=== PATIENT | male | born 1960 | race Caucasian/White ===

== ENCOUNTER 2023-06-19 14:25 | Outpatient (CLI) | payer OTHER, SELFPAY ==
--- NOTE | ~2023-06-19 | XR_ITS ---
XR hand BI arthritis min 3V 06/19/2023 14:48 Indication: Hand pain Procedure: 4 views each hand Comparison: No prior studies for comparison. Findings: There are healed bilateral fifth metacarpal fractures. There is moderate polyarticular oste oarthritis of the hands and wrists which appear symmetric primarily involving the distal interphalang eal joints as well as the first metacarpophalangeal joints. No erosive changes. No focal soft tissue abnormality. Small loose bodies present along the dorsal aspect of the left second and third distal i nterphalangeal joints, likely related to degenerative change or remote trauma. There are also loose b odies along the right second and third distal interphalangeal joints of probable similar etiology. No foreign bodies. Impression: 1: Moderate bilateral polyarticular osteoarthritis. Reviewed, dictated and finalized at location B. APIST Impression: 1: Moderate bilateral polyarticular osteoarthritis.
[2023-06-19 14:40] LABS: Basophils Absolute Auto 0.05 K/mm3 (0.00-0.10); Basophils Percent Auto 0.7 % (0.0-1.0); Eosinophils Absolute Auto 0.22 K/mm3 (0.02-0.50); Eosinophils Percent Auto 2.9 % (1.0-6.0); Hematocrit 44.5 % (40.0-54.0); Hemoglobin 15.5 g/dL (14.0-18.0); Immature Granulocyte Absolute 0.02 K/mm3 (0.00-0.00); Immature Granulocyte Percent A 0.3 % (0.0-0.0); Lymphocytes Percent Auto 24.9 % (18.0-42.0); Mean Corpuscular HGB Conc 34.8 g/dL (32.0-36.0); Mean Corpuscular Hemoglobin 32.6 pg (27.0-31.0); Mean Corpuscular Volume 93.5 fL (78.0-102.0); Mean Platelet Volume 10.2 fl (8.7-11.0); Monocytes Absolute Auto 0.54 K/mm3 (0.10-0.90); Monocytes Percent Auto 7.1 % (2.0-11.0); Neutrophils Absolute Auto 4.9 K/mm3 (1.7-7.2); Neutrophils Percent Auto 64.1 % (50.0-70.0); Platelet Count Result 215 K/mm3 (150-420); Red Blood Count 4.76 M/mm3 (4.70-6.10); Red Cell Distribution Width 12.7 % (11.6-14.4); White Blood Count 7.6 K/mm3 (4.8-10.8)
[2023-06-19 15:08] LABS: Rheumatoid Factor Screen Negative (Negative)
[2023-06-19 15:15] LABS: Alanine Aminotransferase 19 U/L (16-63); Albumin Level 3.5 g/dL (3.4-5.0); Alkaline Phosphatase 90 U/L (46-116); Anion Gap 6 mmol/L (8-16); Aspartate Amino Transferase 16 U/L (15-37); Bilirubin,Total 0.4 mg/dL (0.00-1.00); Blood Urea Nitrogen 14 mg/dL (7-18); CRP < 0.5 mg/dL (0.0-0.9); Calcium 8.9 mg/dL (8.5-10.1); Carbon Dioxide 33 mmol/L (21-32); Chloride 103 mmol/L (98-108); Cholesterol 133 mg/dL (0-200); Estimated Glomerular Filt Rate > 60; Glucose 69 mg/dL (70-99); HDL Direct 37 mg/dL (40-60); LDL Cholesterol Calculated 74 mg/dL (<130); Osmolality Calculated 292 mOsm/kg (285-295); Sodium 142 mmol/L (136-145); Total Protein 7.8 g/dL (6.4-8.2); Triglycerides 108 mg/dL (0-150)
[2023-06-19 15:24] LABS: Thyroid Stimulating Hormone Reflex 1.56 u/IU/mL (0.36-3.74)
[2023-06-21 19:15] LABS: ANA Cascade Screen Negative (Negative)
== END 2023-06-19 14:26 | disposition home or self-care (01) ==
LOC: CHSLAB 14:29
PROVIDERS: PCP Family Medicine; Visit Provider Family Medicine
DX: Z00.00 Encounter for general adult medical examination without abnormal findings (principal); E11.9 Type 2 diabetes mellitus without complications; M79.642 Pain in left hand; M79.641 Pain in right hand; M19.042 Primary osteoarthritis, left hand; M19.041 Primary osteoarthritis, right hand
CPT/HCPCS: 36415; 73130; 80053; 80061; 83516; 84443; 85025; 86038; 86140; 86225; 86235; 86430

== ENCOUNTER 2023-07-19 10:58 | Outpatient (CLI) | payer OTHER, SELFPAY ==
--- NOTE | ~2023-07-19 | XR_ITS ---
Left Knee Technique: AP, lateral, and sunrise views were obtained. Clinical History: Pain Findings: No fracture or dislocation is seen. Osseous alignment is anatomic. Joint spaces are preserv ed without degenerative or erosive change. Soft tissues are unremarkable. No joint effusion is seen. Impression: Unremarkable left knee radiographs. Reviewed, dictated and finalized at location . ERCIAL PLUMBER Impression: Unremarkable left knee radiographs.
--- NOTE | ~2023-07-19 | XR_ITS ---
Right Knee Technique: AP, lateral, and sunrise views were obtained. Clinical History: Pain Findings: No fracture or dislocation is seen. Osseous alignment is anatomic. Minimal patellar spurrin g present. Soft tissues are unremarkable. No joint effusion is seen. Impression: Minimal patellar spurring. Reviewed, dictated and finalized at [facility], [place]. 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
== END 2023-07-19 10:59 | disposition home or self-care (01) ==
LOC: CHSIMG 11:00
PROVIDERS: PCP Family Medicine; Visit Provider Family Medicine
DX: M25.562 Pain in left knee (principal); M25.561 Pain in right knee; M76.51 Patellar tendinitis, right knee
CPT/HCPCS: 73562

== ENCOUNTER 2023-10-25 08:55 | Inpatient (IN) | payer OTHER, SELFPAY ==
[2023-10-25] VITALS (33 sets, daily range): BP systolic 123–194; BP diastolic 69–98; PULSE 79–121; RESP 18–32; TEMP 35.9–39.1; O2SAT 96–100; BMI 29.5
--- NOTE | ~2023-10-25 | CT_ITS ---
EXAMINATION: CTA chest PE protocol DATE: 10/25/2023 10:47 INDICATION: Cough. Body aches. TECHNIQUE: Computed tomography angiography (CTA) of the chest was performed with 100 mL Omnipaque-350 intravenous contrast timed to evaluate the pulmonary arteries. Coronal maximum intensity projection 3D-reconstructions were created by the technologist. Automated exposure control and iterative reconst ruction technique were employed. The dose-length product was 527.30 mGy-cm. COMPARISON: Chest single view 10/25/2023 FINDINGS: There is moderate emphysema. Calcified right lung nodules and calcified right hilar lymph n odes are consistent with old granulomatous disease. There is mild atelectasis bilaterally. There are a few nodules in the lungs measuring up to 5 mm, likely benign. No pleural effusion. The heart size i s normal. No pericardial effusion. There are coronary artery calcifications. There is no pulmonary em bolus. There is mild thoracic spondylosis. There is levoscoliosis of upper thoracic spine. IMPRESSION: 1. No pulmonary embolus. 2. Moderate emphysema. Reviewed, dictated and finalized at location A.
--- NOTE | ~2023-10-25 | XR_ITS ---
EXAMINATION: XR chest 1V portable DATE: 10/25/2023 09:23 INDICATION: Dyspnea. Weakness. TECHNIQUE: A single frontal view of the chest was obtained. COMPARISON: None. FINDINGS: Calcified right lung nodules are consistent with old granulomatous disease. There is no pne umonia, pleural effusion, or pneumothorax. The heart size is normal. IMPRESSION: 1. No acute cardiopulmonary disease. Reviewed, dictated and finalized at location A.
--- NOTE | 2023-10-25 09:13 | ECG_ITS ---
Measurements Intervals [place] Rate: 92 P: 55 WV: 170 QRS: -1 QRSD: 88 T: 74 QT: 337 QTc: 417 Interpretive Statements SINUS RHYTHM ATRIAL PREMATURE COMPLEX BORDERLINE R WAVE PROGRESSION, ANTERIOR LEADS BORDERLINE ECG NO PREVIOUS ECG AVAILABLE FOR COMPARISON Electronically Signed On 10-25-2023 9:37:24 CDT by Adam Gallo D.O.
[2023-10-25] MEDS: SODIUM CHLORIDE 0.9% IV 1,000 ML 999 ML IV CONT (09:31)
[2023-10-25] MEDS: IPRATROPIUM 0.5 MG/ALBUTEROL SULFATE 2.5 MG AMPUL.NEB 3 ML INHALATION (09:33)
[2023-10-25 09:37] LABS: Basophils Absolute Auto 0.03 K/mm3 (0.00-0.10); Basophils Percent Auto 0.3 % (0.0-1.0); Hematocrit 40.3 % (40.0-54.0); Hemoglobin 14.2 g/dL (14.0-18.0); Immature Granulocyte Absolute 0.07 K/mm3 (0.00-0.00); Immature Granulocyte Percent A 0.7 % (0.0-0.0); Lymphocytes Absolute Auto 0.49 K/mm3 (1.10-4.50); Lymphocytes Percent Auto 5.1 % (18.0-42.0); Mean Corpuscular HGB Conc 35.2 g/dL (32-36); Mean Corpuscular Hemoglobin 31.4 pg (27.0-31.0); Mean Corpuscular Volume 89.2 fL (78.0-102.0); Mean Platelet Volume 10.2 fl (8.7-11.0); Monocytes Absolute Auto 0.48 K/mm3 (0.10-0.90); Neutrophils Percent Auto 88.9 % (50.0-70.0); Platelet Count Result 141 K/mm3 (150-420); Red Blood Count 4.52 M/mm3 (4.70-6.10); Red Cell Distribution Width 12.7 % (11.6-14.4); White Blood Count 9.6 K/mm3 (4.8-10.8)
[2023-10-25 09:40] LABS: Base Excess ABG -2.3 mmol/L (0-2); HCO3 ABG 19.4 mmol/L (23-29); Oxygen Content ABG 18.8 %vol (16.0-22.0); Oxygen Saturation ABG 94.6 % (95-97); Oxyhemoglobin 92.4 % (94-100); PCO2 ABG 26.4 mmHg (35-45); Total Hemoglobin 14.5 g/dL (12.0-18.0); pH ABG 7.49 (7.35-7.45)
[2023-10-25 09:43] LABS: Device ROOM AIR; Modified Allen's Test Pass; Site Drawn RIGHT RADIAL
[2023-10-25 09:52] LABS: INR 1.1; Partial Thromboplastin Time 29.3 Sec (23.9-30.70); Prothrombin Time 11.9 Seconds (9.50-12.1)
[2023-10-25 10:00] LABS: Lactic Acid Reflex 1.4 mmol/L (0.4-2.0)
[2023-10-25 10:01] LABS: Alanine Aminotransferase 34 U/L (16-63); Albumin Level 3.3 g/dL (3.4-5.0); Alkaline Phosphatase 93 U/L (46-116); Anion Gap 12 mmol/L (4-12); Aspartate Amino Transferase 52 U/L (15-37); Bilirubin,Total 1.1 mg/dL (0.00-1.00); Blood Urea Nitrogen 15 mg/dL (7-18); Calcium 8.5 mg/dL (8.5-10.1); Carbon Dioxide 26 mmol/L (21-32); Chloride 100 mmol/L (98-108); Estimated CRCL calculation 42 ml/min; Estimated Glomerular Filt Rate 46; Glucose 130 mg/dL (70-99); Magnesium 1.6 mg/dL (1.8-2.4); NT Pro B Type Natriuretic Pept 940 pg/mL (0-125); Osmolality Calculated 288 mOsm/kg (285-295); Potassium 3.4 mmol/L (3.5-5.1); Sodium 138 mmol/L (136-145); Total Protein 7.7 g/dL (6.4-8.2); Troponin I 13.1 ng/L (0.00-60.4)
[2023-10-25 10:03] LABS: D Dimer 2.22 mg/L (0.19-0.50)
--- NOTE | 2023-10-25 11:22 | ED.SOB ---
HPI - SOB/Dyspnea General Chief Complaint: Shortness of Breath/Dyspnea Stated Complaint: SOB, body aches Time Seen by Provider: 10/25/23 09:12 Source: patient and family Mode of arrival: wheelchair Limitations: no limitations History of Present Illness HPI Narrative: this is a 63-year-old male who presents from his primary care doctor's office with shortness breath for the last 5 days diaphoresis and body aches COVID influenza and RSV by his primary care physician Gurvinder were negative. Patient states that he works in a environment with possibly exposure to mold. Patient is a long-time smoker. currently does not take any medication. patient apparently has been helping a friend remodel a house and appears to have mold in the remodeling house. Denies any chest pain there is shortness of breath with some no nausea vomiting no abdominal pain no diarrhea constipation no fever chills. MD elicited complaint: shortness of breath Onset (ago): day(s) Related Data Home Medications Medication Instructions Recorded Confirmed No Home Medications 10/25/23 10/25/23 Allergies Allergy/AdvReac Type Severity Reaction Status Date / Time No Known Allergies Allergy Verified 10/25/23 09:10 Review of Systems Review of Systems: All systems reviewed & are unremarkable except as noted in HPI and below PMFSH Past Medical History Medical History (Updated 10/25/23 @ 11:29 by Sunil Chinchilla MD) Anxiety and depression Surgical History Surgical History (System 10/25/23 @ 08:28 by Chey Sarmiento) H/O skin graft Family History Family History (System 10/25/23 @ 08:28 by Chey Sarmiento) Father Lung cancer Mother Diabetes mellitus Heart disease Carcinoma of colon Cervical cancer Social History Social History (System 10/25/23 @ 08:28 by Chey Sarmiento) Smoking packs per day: 1.5 Smoking cigarettes per day: 30.0 Years smoked: 8 Smoking pack-years: 12.00 Smoking status: Current every day smoker Tobacco type: cigarettes Alcohol intake: never Substance use: never Living arrangements: alone Spiritual care concerns: No Exam Const: General: healthy appearing, no acute distress and alert Nutritional Appearance: well nourished Orientation/consciousness: patient oriented x3 Limitations: no limitations HENMT: Head: normal to inspection Neck: Neck: normal visual inspection Chest: Chest palpation & inspection: normal inspection of the chest Resp: Effort & Inspection: normal respiratory effort Auscultation: rhonchi Cardio: Rate: regular rate Rhythm: regular rhythm GI: GI Palp: Yes Soft to palpation Auscultation: normal bowel sounds Urinary Catheter: Urinary Catheter: patent and draining Skin: General skin exam: normal color Rashes: no rashes Neuro: General: patient oriented x3 Cranial nerves: Yes Nystagmus not present Extrem: General: normal to inspection Psych: Mental Status: mental status grossly normal Affect: Anxious affect present Course Course Emergency Course: Patient received breathing treatment along with some IV steroids, did receive dose of ceftriaxone and azithromycin. Patient is a long-time smoker with some currently not on any medication. Had a chest x-ray which showed no acute abnormalities, he had an elevated D-dimer and CTA performed was negative for pulmonary embolism. Labs showed a white count of 9.6 with potassium 3.4 creatinine of 1.55 BNP of 948. Troponins were negative EKG was normal sinus rhythm. ABGs shows 7.49 with a pCO2 of 26.4 and a bicarb of 18. Vital Signs Vital signs: Vital Signs Temperature 36.5 C 10/25/23 08:55 Pulse Rate 93 10/25/23 08:55 Respiratory Rate 30 H 10/25/23 08:55 Blood Pressure 136/79 10/25/23 08:55 Pulse Oximetry 100 10/25/23 08:55 Oxygen Delivery Room Air 10/25/23 08:55 Temperature 36.5 C 10/25/23 08:55 Pulse Rate 118 H 10/25/23 10:00 Respiratory Rate 27 H 10/25/23 09:57 Blood Pressure 13
[2023-10-25] MEDS: methylPREDNISolone SOD SUCC 125 MG VIAL IV PUSH (11:29)
[2023-10-25] MEDS: AZITHROMYCIN 500 MG/NS 250 ML 500 MG/250 ML BAG 250 MG IVPB (12:00)
[2023-10-25 12:05] LABS: Appearance Urine Clear (Clear); Bilirubin Urine Negative (Negative); Blood Urine Negative (Negative); Color Urine Yellow (Yellow); Glucose Urine UA Negative (Negative); Ketones Urine Negative (Negative); Leukocyte Esterase Ur Negative LEU/UL (Negative); Nitrate Urine Negative (Negative); Protein Urine Trace (Negative); Specific Grav Ur <= 1.005 (1.010-1.020)
[2023-10-25 12:09] LABS: Amphetamine Screen Urine Positive (Negative); Barbiturate Screen Urine Negative (Negative); Benzodiazepines Screen Urine Negative (Negative); Cannabinoid Screen Urine Negative (Negative); Cocaine Screen Urine Negative (Negative); Methadone Screen Urine Negative (Negative); Opiate Screen Urine Negative (Negative); Phencyclidine Screen Urine Negative (Negative)
[2023-10-25 12:20] LABS: Add Urine Microscopic? YES; Bacteria Urine None seen /hpf; RBC Urine None seen /hpf (0-2); WBC Urine None seen /hpf (0-3)
--- NOTE | 2023-10-25 12:20 | ADMGEN ---
This patient, Shamar Patel, was admitted to 2nd Floor Room 210-2. Patient/family oriented to hospital policies and general routines including ID bracelet, bed and alarms, visiting hours, pain management, procedures, bathroom and other care routines, personal items, smoking policy, room service/diet, and visiting hours. Information on how to activate the Rapid Response Team has been discussed. Patient/Family are encouraged to report perceived risks to care and to ask questions if they do not understand what they are told or what they should do.
[2023-10-25] MEDS: ACETAMINOPHEN 325 MG TABLET 650 MG PO (13:22)
[2023-10-25] MEDS: BENZONATATE 100 MG CAPSULE 200 MG PO ×2 (13:22→17:48)
[2023-10-25 17:42] LABS: Glucose Point of Care 181 mg/dl (65-105)
[2023-10-25] MEDS: methylPREDNISolone SOD SUCC 40 MG VIAL IV PUSH (17:49)
[2023-10-26] VITALS: BP 125/84; PULSE 81; RESP 21; TEMP 36.1; O2SAT 97
[2023-10-26 06:05] LABS: Basophils Absolute Auto 0.02 K/mm3 (0.00-0.10); Basophils Percent Auto 0.2 % (0.0-1.0); Hematocrit 40.6 % (40.0-54.0); Hemoglobin 14.3 g/dL (14.0-18.0); Immature Granulocyte Absolute 0.05 K/mm3 (0.00-0.00); Immature Granulocyte Percent A 0.4 % (0.0-0.0); Lymphocytes Absolute Auto 0.81 K/mm3 (1.10-4.50); Mean Corpuscular HGB Conc 35.2 g/dL (32-36); Mean Corpuscular Hemoglobin 31.2 pg (27.0-31.0); Mean Corpuscular Volume 88.6 fL (78.0-102.0); Mean Platelet Volume 10.2 fl (8.7-11.0); Monocytes Percent Auto 7.8 % (2.0-11.0); Neutrophils Absolute Auto 9.73 K/mm3 (1.70-7.20); Neutrophils Percent Auto 84.6 % (50.0-70.0); Platelet Count Result 158 K/mm3 (150-420); Red Blood Count 4.58 M/mm3 (4.70-6.10); Red Cell Distribution Width 12.8 % (11.6-14.4); White Blood Count 11.5 K/mm3 (4.8-10.8)
[2023-10-26 07:15] LABS: Phosphorus 1.9 mg/dL (2.6-4.7); Thyroid Stimulating Hormone 1.07 uIU/mL (0.36-3.74)
[2023-10-26 07:27] LABS: Hemoglobin A1C 5.4 % (<5.7)
[2023-10-26 07:45] VITALS: BP 145/84; PULSE 82; RESP 18; TEMP 36.3; O2SAT 97
[2023-10-26 08:18] LABS: Alanine Aminotransferase 49 U/L (16-63); Albumin Level 2.9 g/dL (3.4-5.0); Alkaline Phosphatase 87 U/L (46-116); Anion Gap 12 mmol/L (4-12); Aspartate Amino Transferase 47 U/L (15-37); Bilirubin,Total 0.5 mg/dL (0.00-1.00); Blood Urea Nitrogen 19 mg/dL (7-18); Carbon Dioxide 24 mmol/L (21-32); Chloride 104 mmol/L (98-108); Estimated CRCL calculation 66 ml/min; Estimated Glomerular Filt Rate > 60; Glucose 170 mg/dL (70-99); Osmolality Calculated 296 mOsm/kg (285-295); Potassium 3.5 mmol/L (3.5-5.1); Sodium 140 mmol/L (136-145); Total Protein 7.5 g/dL (6.4-8.2)
[2023-10-26 08:30] VITALS: O2SAT 97
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
[2023-10-26] MEDS: AZITHROMYCIN 250 MG TABLET 500 MG PO (09:58)
[2023-10-26] MEDS: POTASSIUM/PHOSPHORUS/SODIUM 1.5 GM PACKET 1 PACKET PO ×2 (09:58→16:54)
[2023-10-26] MEDS: methylPREDNISolone SOD SUCC 40 MG VIAL IV PUSH (09:58)
[2023-10-26] MEDS: amLODIPine BESYLATE 5 MG TABLET PO (09:58)
[2023-10-26] MEDS: BENZONATATE 100 MG CAPSULE 200 MG PO ×3 (09:58→16:51)
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
[2023-10-26] MEDS: VANCOMYCIN 1,250 MG/NS 250 ML 1,250 MG/250 ML BAG 166.67 MG IVPB (12:36)
[2023-10-26] MEDS: NICOTINE (*PBKC) 21 MG PATCH 1 PATCH TRANSDERM (12:36)
--- NOTE | 2023-10-26 12:54 | PC.NURSE ---
Patient made inpatient at 1225
[2023-10-26] MEDS: VANCOMYCIN 1,000 MG/NS 250 ML 1,000 MG/250 ML BAG 250 MG IVPB (14:25)
[2023-10-26 16:40] VITALS: BP 135/77; PULSE 89; RESP 16; TEMP 36.6; O2SAT 98
[2023-10-26] MEDS: MIRTAZAPINE 7.5 MG TABLET PO (20:53)
[2023-10-27] VITALS: BP 147/74; PULSE 74; RESP 16; TEMP 36.5; O2SAT 97
[2023-10-27] MEDS: VANCOMYCIN 1,250 MG/NS 250 ML 1,250 MG/250 ML BAG 166.67 MG IVPB (06:41)
[2023-10-27 07:37] LABS: Hemoglobin 12.6 g/dL (14.0-18.0); Mean Corpuscular Volume 88.7 fL (78.0-102.0); Mean Platelet Volume 10.5 fl (8.7-11.0); Platelet Count Result 187 K/mm3 (150-420); Red Blood Count 4.06 M/mm3 (4.70-6.10); Red Cell Distribution Width 13.1 % (11.6-14.4); White Blood Count 11.8 K/mm3 (4.8-10.8)
--- NOTE | 2023-10-27 07:51 | PM.IMPN ---
Progress Note: A&P Assessment and Plan (1) Bacteremia: Code(s): R78.81 - Bacteremia Status: Acute Assessment and Plan: IV antibiotic IV vancomycin and Azithromycin monitor vitals (2) Hypertension: Code(s): I10 - Essential (primary) hypertension Status: Acute Assessment and Plan: stable continue home medication monitor vitals (3) COPD with acute exacerbation: Code(s): J44.1 - Chronic obstructive pulmonary disease with (acute) exacerbation Status: Acute Assessment and Plan: IV antibiotic breathing treatment as needed oxygen as needed (4) Hypokalemia: Code(s): E87.6 - Hypokalemia Status: Acute Assessment and Plan: Oral potassium 40 meq bid monitor labs in the am Plan Lovenox Protonix Subjective Date/time seen: 10/27/23 07:51 Interval history: Patient is in the bed resting his Blood cultures has come back positive gram positive cocci in cluster we will treat with IV antibioitic at least one more day. Patient WBC 11.8 , K+3.1 we will replenish today with oral potassium 40 meq twice today, he is in the bed resting and denies any pain stating that he feels better today. Patient T max was 98 in the past 24 hours and his labs are trending better Exam Const: General: healthy appearing, no acute distress, alert and well nourished Neck: Neck: normal visual inspection Resp: Effort & Inspection: normal respiratory effort Auscultation: rhonchi Cardio: Rate: regular rate Rhythm: regular rhythm Skin: General skin exam: normal color Rashes: no rashes Neuro: General: patient oriented x3 Psych: Mental Status: mental status grossly normal Objective Data Vital Signs Vital Signs: Vital Signs - 24 hr 10/26/23 08:30 10/26/23 16:40 10/27/23 00:00 Temperature 97.8 F 97.7 F Pulse Rate 89 74 Respiratory Rate 16 16 Blood Pressure 135/77 147/74 H Pulse Oximetry 97 98 97 Oxygen Delivery Room Air Room Air Room Air Intake/Output Intake/Output: Intake & Output 10/24/23 10/25/23 10/26/23 10/27/23 23:59 23:59 23:59 23:59 Intake Total 2100 2200 300 Output Total 600 1325 0 Balance 1500 875 300 Meds/Results Medications: Active Medications Generic Name Dose Route Start Last Admin Trade Name Freq PRN Reason Stop Dose Admin Acetaminophen 650 mg 10/25/23 12:39 10/25/23 13:22 Acetaminophen 325 Mg Tablet PO 650 mg Q4H PRN Administration Mild Pain (1-3) or Fever Albuterol/Ipratropium 3 ml 10/25/23 12:44 Ipratropium 0.5 Mg/Albuterol Sulfate 2.5 Mg Ampul.Neb 3 Ml INHALATION Q6HRT PRN wheezing/SOB Amlodipine Besylate 5 mg 10/26/23 09:00 10/26/23 09:58 Amlodipine Besylate 5 Mg Tablet PO 5 mg QAM TREASURE Administration Azithromycin 500 mg 10/26/23 09:00 10/26/23 09:58 Azithromycin 250 Mg Tablet PO 10/29/23 09:00 500 mg DAILY TREASURE Administration Benzonatate 200 mg 10/25/23 13:00 10/26/23 16:51 Benzonatate 100 Mg Capsule PO 200 mg TID TREASURE Administration Enoxaparin Sodium 40 mg 10/26/23 09:00 10/26/23 09:58 Enoxaparin 40 Mg/0.4 Ml Syringe SUB-Q Not Given DAILY TREASURE Guaifenesin/Dextromethorphan 5 ml 10/25/23 12:44 Guaifenesin/Dextromethorphan 5 Ml Udc PO Q4H PRN Cough Vancomycin HCl 1,250 mg in 250 mls @ 166.667 mls/hr 10/27/23 07:00 10/27/23 06:41 Vancomycin 1,250 Mg/Ns 250 Ml IVPB 166.67 mls/hr Q18H TREASURE Administration Methylprednisolone Sodium Succinate 40 mg 10/27/23 09:00 Methylprednisolone Sod Succ 40 Mg Vial IV PUSH DAILY TREASURE Mirtazapine 7.5 mg 10/26/23 20:35 10/26/23 20:53 Mirtazapine 7.5 Mg Tablet PO 7.5 mg HS PRN Administration Sleep Nicotine 1 patch 10/26/23 09:00 10/26/23 12:36 Nicotine (*Pbkc) 21 Mg Patch TRANSDERM 1 patch DAILY TREASURE Administration Ondansetron HCl 4 mg 10/25/23 12:39 Ondansetron Inj 4 Mg/2 Ml Vial IV PUSH Q6H PRN Nausea And Vomiting
[2023-10-27 08:00] VITALS: BP 136/84; PULSE 76; RESP 18; TEMP 36.6; O2SAT 98
[2023-10-27 08:11] LABS: Anion Gap 10 mmol/L (4-12); Blood Urea Nitrogen 22 mg/dL (7-18); Calcium 8.4 mg/dL (8.5-10.1); Carbon Dioxide 26 mmol/L (21-32); Chloride 107 mmol/L (98-108); Estimated CRCL calculation 69 ml/min; Estimated Glomerular Filt Rate > 60; Glucose 107 mg/dL (70-99); NT Pro B Type Natriuretic Pept 611 pg/mL (0-125); Osmolality Calculated 299 mOsm/kg (285-295); Potassium 3.1 mmol/L (3.5-5.1); Sodium 143 mmol/L (136-145)
--- NOTE | 2023-10-27 08:41 | PC.NURSE ---
Lavell Bruce PARENT TRAINER notified of positive blood culture report of MRSA in both vials drawn on 10/24
[2023-10-27] MEDS: BENZONATATE 100 MG CAPSULE 200 MG PO ×3 (10:09→16:43)
[2023-10-27] MEDS: AZITHROMYCIN 250 MG TABLET 500 MG PO (10:09)
[2023-10-27] MEDS: NICOTINE (*PBKC) 21 MG PATCH 1 PATCH TRANSDERM (10:09)
[2023-10-27] MEDS: methylPREDNISolone SOD SUCC 40 MG VIAL IV PUSH (10:10)
[2023-10-27] MEDS: ENOXAPARIN 40 MG/0.4 ML SYRINGE SUB-Q (10:10)
[2023-10-27] MEDS: amLODIPine BESYLATE 5 MG TABLET PO (10:10)
[2023-10-27 16:00] VITALS: BP 150/84; PULSE 84; RESP 18; TEMP 36.5; O2SAT 98
[2023-10-27 21:05] LABS: Glucose Point of Care 206 mg/dl (65-105)
[2023-10-28] VITALS: BP 147/84; PULSE 73; RESP 18; TEMP 36.3; O2SAT 97
[2023-10-28 01:54] LABS: Vancomycin Trough 4.8 ug/mL (10.0-15.0)
[2023-10-28] MEDS: VANCOMYCIN 1,500 MG/NS 500 ML 1,500 MG/500 ML BAG 250 MG IVPB (02:21)
--- NOTE | 2023-10-28 02:55 | PC.NURSE ---
vancomycin infusion infusing without difficulty. no sign of infiltration to site..
[2023-10-28 06:02] LABS: Hematocrit 36.5 % (40.0-54.0); Hemoglobin 12.4 g/dL (14.0-18.0); Mean Corpuscular Hemoglobin 30.5 pg (27.0-31.0); Mean Corpuscular Volume 89.9 fL (78.0-102.0); Mean Platelet Volume 10.4 fl (8.7-11.0); Platelet Count Result 220 K/mm3 (150-420); Red Blood Count 4.06 M/mm3 (4.70-6.10); White Blood Count 9.9 K/mm3 (4.8-10.8)
[2023-10-28 06:16] LABS: Anion Gap 11 mmol/L (4-12); Blood Urea Nitrogen 18 mg/dL (7-18); Calcium 8.1 mg/dL (8.5-10.1); Carbon Dioxide 26 mmol/L (21-32); Chloride 108 mmol/L (98-108); Estimated CRCL calculation 73 ml/min; Estimated Glomerular Filt Rate > 60; Glucose 96 mg/dL (70-99); Osmolality Calculated 301 mOsm/kg (285-295); Potassium 3.1 mmol/L (3.5-5.1); Sodium 145 mmol/L (136-145)
--- NOTE | 2023-10-28 07:45 | PC.NURSE ---
PT REQUESTING TO BE DISCHARGED TODAY. DISCUSSED CONDITION/DIAGNOSIS. WILL INFORM HOSPITALIST OF PT REQUEST.
[2023-10-28 08:00] VITALS: BP 156/83; PULSE 77; RESP 18; TEMP 36.2; O2SAT 97
[2023-10-28] MEDS: BENZONATATE 100 MG CAPSULE 200 MG PO (08:41)
[2023-10-28] MEDS: AZITHROMYCIN 250 MG TABLET 500 MG PO (08:41)
[2023-10-28] MEDS: amLODIPine BESYLATE 5 MG TABLET PO (08:41)
[2023-10-28] MEDS: methylPREDNISolone SOD SUCC 40 MG VIAL IV PUSH (08:42)
[2023-10-28] MEDS: NICOTINE (*PBKC) 21 MG PATCH 1 PATCH TRANSDERM (08:42)
--- NOTE | 2023-10-28 09:02 | PM.DS ---
DS: Admitting Diagnosis Discharge Date 10/28/2023 Admitting Diagnosis Bacteremia DS: Discharge Diagnosis Discharge Diagnosis Plan Bacteremia , Patient is in need of a 6 week of IV antibiotics he had just been back from leaving against medical advise and his primary care provider had called him and informed him to come in to stay for IV antibiotic. I had seen patient earlier in the morning and he decided that he was not going to say. I did discuss with patient previously about the need for [facility] antibiotics and explained to him that once he has an non positive blood culture he would need 6 weeks of IV antibiotics he had agreed but apparently he has decided that he wanted to leave. It would be in the patient best interest to be seen by infectious disease and his primary care provider will be notified of his ama status again and he would be best served at a hospital with infectious disease as they may be able to get him out of the hosptial sooner. DS: Summary Hospital Course Reason for hospitalization: Bacteremia, fever Hospital Course: Patient is leaving against medical advice order oral Doxy patient needs to follow up with pCP and will possible need a echo positive mrsa and gram positive cocci with jennifer. Bacteremia , Patient is in need of a 6 week of IV antibiotics he had just been back from leaving against medical advise and his primary care provider had called him and informed him to come in to stay for IV antibiotic. I had seen patient earlier in the morning and he decided that he was not going to say. I did discuss with patient previously about the need for predatory animal exterminator antibiotics and explained to him that once he has an non positive blood culture he would need 6 weeks of IV antibiotics he had agreed but apparently he has decided that he wanted to leave. It would be in the patient best interest to be seen by infectious disease and his primary care provider will be notified of his ama status again and he would be best served at a hospital with infectious disease as they may be able to get him out of the hosptial sooner. Time Spent with Patient Time attestation: Total time spent providing and/or coordinating discharge services: Exam Const: General: healthy appearing, no acute distress, alert and well nourished Nutritional Appearance: well nourished Orientation/consciousness: patient oriented x3 Resp: Effort & Inspection: normal respiratory effort Auscultation: rhonchi Cardio: Rate: regular rate Rhythm: regular rhythm Skin: General skin exam: normal color Rashes: no rashes Neuro: General: patient oriented x3 Cranial nerves: Yes Nystagmus not present Psych: Mental Status: mental status grossly normal DS: Data Data Completed and Pending Labs on day of discharge: Labs from last 24 hours 10/28/23 10/28/23 10/27/23 05:25 01:18 20:59 WBC 9.9 RBC 4.06 L Hgb 12.4 L Hct 36.5 L MCV 89.9 MCH 30.5 MCHC 34.0 RDW 13.0 Plt Count 220 MPV 10.4 Sodium 145 Potassium 3.1 L Chloride 108 Carbon Dioxide 26 Anion Gap 11 BUN 18 Creatinine 0.87 Estim Creat Clear Calc 73 Estimated GFR > 60 Glucose 96 POC Capillary Glucose 206 H Calculated Osmolality 301 H Calcium 8.1 L Vancomycin Trough 4.8 L Preliminary micro results at discharge 10/26/23 10:59 Blood Culture - Preliminary Blood Gram positive cocci cluster is 10/26/23 10:59 Blood Culture - Preliminary Blood Gram positive cocci cluster is Discharge Plan Discharge Attending physician on discharge: Andrea Horowitz Consulting providers: Rebecca Schroeder; Lavell Bruce; Adam Gallo; Lonnie Dias V. Discharging Clinician: Lavell Bruce Anticipated Discharge Date/Time: 10/26/23 09:02 Patient Disposition: Left Against Medical Advice Activity: as tolerated Diet: as tolerated Discharge Instructions: Finish all of your antibiotics as prescribed I order
[2023-10-30 07:16] LABS: Procalcitonin 0.4 ng/mL
--- NOTE | 2023-10-30 07:56 | PC.NURSE ---
Patient returned as an observation patient per Dr Shah request before follow up call was completed 10/29/2023
== END 2023-10-28 10:15 | disposition left against medical advice (07) | DRG 140 ==
LOC: CHSED 11:31 → CHS2ND 12:00
PROVIDERS: Nurse Practitioner Acute Care; Nurse Practitioner Family; Admitting Provider Internal Medicine; Emergency Provider Emergency Medicine; PCP Family Medicine; Visit Provider Internal Medicine
DX: J44.1 Chronic obstructive pulmonary disease with (acute) exacerbation (principal); R78.81 Bacteremia; A49.02 Methicillin resistant Staphylococcus aureus infection, unspecified site; I10 Essential (primary) hypertension; E87.6 Hypokalemia; F41.9 Anxiety disorder, unspecified; F32.A Depression, unspecified; F17.210 Nicotine dependence, cigarettes, uncomplicated
CPT/HCPCS: 36415; 36600; 71045; 71275; 80048; 80053; 80202; 80307; 81001; 82805; 82948; 83036; 83605; 83735; 83880; 84100; 84145; 84443; 84484; 85025; 85027; 85380; 85610; 85730; 87040; 87147; 87181; 93005; 94640; 96361; 96365; 96375; 96376; 99285; A9270; G0378; G0379; J0456; J0696; J1650; J2920; J2930; J3370; J7030; Q9967

== ENCOUNTER 2023-10-29 15:31 | Inpatient (IN) | payer OTHER, SELFPAY ==
[2023-10-29 15:31] VITALS: BP 165/91; PULSE 86; RESP 16; TEMP 36.8; O2SAT 98
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
[2023-10-29 15:46] VITALS: BP 156/98; PULSE 85; RESP 18; O2SAT 96
[2023-10-29 16:07] LABS: Basophils Absolute Auto 0.04 K/mm3 (0.00-0.10); Basophils Percent Auto 0.4 % (0.0-1.0); Hematocrit 50.3 % (40.0-54.0); Immature Granulocyte Absolute 0.19 K/mm3 (0.00-0.00); Immature Granulocyte Percent A 2.1 % (0.0-0.0); Lymphocytes Absolute Auto 1.01 K/mm3 (1.10-4.50); Mean Corpuscular HGB Conc 35.8 g/dL (32-36); Mean Corpuscular Hemoglobin 31.9 pg (27.0-31.0); Mean Platelet Volume 9.7 fl (8.7-11.0); Monocytes Absolute Auto 0.47 K/mm3 (0.10-0.90); Monocytes Percent Auto 5.1 % (2.0-11.0); Neutrophils Absolute Auto 7.45 K/mm3 (1.70-7.20); Neutrophils Percent Auto 81.4 % (50.0-70.0); Platelet Count Result 201 K/mm3 (150-420); Red Blood Count 5.65 M/mm3 (4.70-6.10); Red Cell Distribution Width 12.9 % (11.6-14.4); White Blood Count 9.2 K/mm3 (4.8-10.8)
[2023-10-29 16:19] LABS: Anion Gap 11 mmol/L (4-12); Blood Urea Nitrogen 19 mg/dL (7-18); Calcium 8.7 mg/dL (8.5-10.1); Carbon Dioxide 27 mmol/L (21-32); Chloride 104 mmol/L (98-108); Estimated CRCL calculation 66 ml/min; Estimated Glomerular Filt Rate > 60; Glucose 186 mg/dL (70-99); Osmolality Calculated 301 mOsm/kg (285-295); Potassium 3.7 mmol/L (3.5-5.1); Sodium 142 mmol/L (136-145)
[2023-10-29 16:30] VITALS: O2SAT 95
--- NOTE | 2023-10-29 16:33 | PC.NURSE ---
PT HAS FAMILY AT BEDSIDE. PT DENIES ANY NEEDS OR COMPLAINTS AT THIS TIME. PT IS AWAITING ADMISSION. PT AND FAMILY ARE AWARE OF PLAN OF CARE. WILL CONTINUE TO MONITOR.
--- NOTE | 2023-10-29 16:36 | PC.NURSE ---
PT IS TO BE ADMITTED TO ROOM 210.
[2023-10-29 16:39] VITALS: BP 161/94; PULSE 82; RESP 18; O2SAT 97
[2023-10-29 17:05] VITALS: BP 162/95; PULSE 74; RESP 16; TEMP 36.5; O2SAT 98; BMI 29.0
--- NOTE | 2023-10-29 17:16 | ADMGEN ---
This patient, Shamar Patel, was admitted to 2nd Floor Room 210-1. Patient/family oriented to hospital policies and general routines including ID bracelet, bed and alarms, visiting hours, pain management, procedures, bathroom and other care routines, personal items, smoking policy, room service/diet, and visiting hours. Information on how to activate the Rapid Response Team has been discussed. Patient/Family are encouraged to report perceived risks to care and to ask questions if they do not understand what they are told or what they should do.
[2023-10-29] MEDS: VANCOMYCIN 1,000 MG/NS 250 ML 1,000 MG/250 ML BAG 250 MG IVPB ×2 (18:30)
[2023-10-30] VITALS: BP 156/89; PULSE 78; RESP 16; TEMP 36.7; O2SAT 95
[2023-10-30] MEDS: VANCOMYCIN 1,500 MG/NS 500 ML 1,500 MG/500 ML BAG 250 MG IVPB ×2 (05:00→17:03)
[2023-10-30 06:10] LABS: Estimated CRCL calculation 71 ml/min; Estimated Glomerular Filt Rate > 60
[2023-10-30 08:00] VITALS: BP 166/90; PULSE 68; RESP 16; TEMP 36.4; O2SAT 95
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
--- NOTE | 2023-10-30 08:36 | PHA.ABX.ID ---
Pharmacy ID Consult - Stewardship Interventions Type of Interventions: Other Pharmacy ID Note: Subjective Pharmacy was consulted by Concepcion Bruce regarding infectious diseases for Shamar Patel. Shamar Patel is a 63 year old M with concerns regarding MRSA bloodstream infection. Background The patient is currently receiving Vancomycin IV D2 - pt was recently here prior to AMA and was given parenteral antibiotics at that time too. The patient's PMH includes Positive blood cultures for MRSA on 10/24 and 10/25 (Noted that Vancomycin IRVING 1 and <=0.5 respectively) with 4/ cultures pending for growth. Assessment/Recommendation/Discussion Spoke briefly with provider regarding this patient. Provider is looking to obtain an echo to rule in / out endocarditis. Informed provider that finding a source and clearing blood cultures would likely be important steps in diagnosis / disease staging. Noting that / cultures were obtained prior to antibiotics from this stay being administered (presumably similar with 10/25) another set of blood cultures recommended for 10/31 to allow >48 hours of vancomycin therapy prior to next set. If uncomplicated MRSA BSI then likely 2 weeks of parenteral therapy, likely with vancomycin, maybe consider daptomycin and perhaps, if IV antibiotics cannot be done, PO linezolid or SMX/TMP (as seen in the SABATO trial) can be done but there is limited data available in those routes. Will continue to follow for source, culture clearance, and if this is complicated bsi which may require 4 or more weeks of therapy. Thank you for the interesting consult. Franklyn Cortes, PharmD Infectious Disease/Antimicrobial Stewardship Pharmacist 10/30/23; 0836 WBC 9.2 K/mm3 (4.8-10.8) 10/29/23 16:00 Creatinine 0.89 mg/dL (0.70-1.30) 10/30/23 05:40 Estim Creat Clear Calc 71 ml/min 10/30/23 05:40
[2023-10-30] MEDS: LORazepam INJ (*CRX) 2 MG/ML VIAL 0.5 MG IV PUSH (09:30)
--- NOTE | 2023-10-30 09:31 | PC.NURSE ---
Pt given 0.25mg of Ativan as ordered by Maria Elena [employer] TEACHER/hospitalist. RO
--- NOTE | 2023-10-30 12:00 | ECHO_ITS ---
Patient Info Name: Shamar Patel Age: 63 years : 1960 Gender: Male Ht: 67 in Wt: 178 lbs BSA: 1.97 m2 HR: 68 bpm BP: 166 / 90 mmHg Heart Rhythm: Sinus Rhythm Technical Quality: Good Exam Date: 10/30/2023 2:30 PM Exam Location: Echo Lab Patient Status: Inpatient Admit Date: 10/30/2023 Staff Ordering Physician: Lavell rBuce NP [employer] Trim Tool Setter: Marianne Quiroz RDCS Attending Provider: Andrea Horowitz MD Referring Physician: Teo DELGADO; Exam Type: CA echo doppler color flow Study Info Indications - endocarditis Complete two-dimensional, color flow and Doppler transthoracic echocardiogram is performed. Summary 1. Complete two-dimensional, color flow and Doppler transthoracic echocardiogram is performed. 2. Left ventricular chamber dimension is mildly enlarged. 3. Left ventricular systolic function is normal, estimated at 55-60%. 4. The left ventricular diastolic function is grade I diastolic dysfunction. 5. E/e' 7 is not elevated. 6. Left atrial chamber dimension is mildly enlarged. 7. There is mild aortic valve sclerosis. 8. There is trace aortic valve regurgitation. 9. There is mild mitral valve regurgitation. 10. There is mild tricuspid valve regurgitation. 11. No pulmonary hypertension, estimated pulmonary arterial systolic pressure is 34 mmHg. Left Ventricle E/e' 7 is not elevated. Left ventricular chamber dimension is mildly enlarged. Left ventricular systolic function is normal, estimated at 55-60%. The left ventricular diastolic function is grade I diastolic dysfunction. Right Ventricle Right ventricular systolic function is normal and with normal TAPSE 2.5 cm. Right ventricular chamber dimension is normal. Left Atria Left atrial chamber dimension is mildly enlarged. Right Atria Right atrial chamber dimension is normal. Aortic Valve The aortic valve is trileaflet. There is mild aortic valve sclerosis. There is no aortic valve stenosis. There is trace aortic valve regurgitation. No aortic valve vegetation visualized. Pulmonic Valve There is no pulmonic regurgitation. No pulmonic valve vegetation visualized. Mitral Valve There is no mitral valve stenosis. There is mild mitral valve regurgitation. No mitral valve vegetation visualized. Tricuspid Valve There is mild tricuspid valve regurgitation. No pulmonary hypertension, estimated pulmonary arterial systolic pressure is 34 mmHg. No tricuspid valve vegetation visualized. Pericardium/Pleural There is no pericardial effusion. Inferior Vena Cava Normal inferior vena cava with >50% collapse upon inspiration consistent with normal right atrial pressure, 5 mmHg. Aorta The aortic root size at the sinus of Valsalva is normal. Left Ventricular Outflow Tract Name Value Normal LVOT 2D LVOT Diameter 2.0 cm LVOT Doppler LVOT Peak Velocity 87 cm/s LVOT Peak Gradient 3 mmHg LVOT Mean Gradient 2 mmHg LVOT VTI 21 cm LVOT VTI/AV VTI Ratio 0.9 LVOT Stroke Volume 65 ml Pulmonic Valve
[2023-10-30] MEDS: MORPHINE SULFATE (*CRX) 2 MG/ML INJ IV PUSH (14:50)
[2023-10-30 16:00] VITALS: BP 169/97; PULSE 78; RESP 14; TEMP 36.6; O2SAT 97
[2023-10-30] MEDS: HYDROcodone/acetaminophen (*CRX) 5-325 MG TABLET 1 TAB PO (20:48)
[2023-10-31] VITALS: BP 142/89; PULSE 72; RESP 16; TEMP 36.2; O2SAT 96
[2023-10-31 04:14] LABS: Vancomycin Trough 13.7 ug/mL (10.0-15.0)
[2023-10-31 04:19] LABS: Estimated CRCL calculation 71 ml/min; Estimated Glomerular Filt Rate > 60
[2023-10-31] MEDS: VANCOMYCIN 1,500 MG/NS 500 ML 1,500 MG/500 ML BAG 250 MG IVPB (05:22)
--- NOTE | 2023-10-31 06:47 | PC.NURSE ---
report to danita hull . all questions answered.
[2023-10-31 08:00] VITALS: BP 148/81; PULSE 77; RESP 19; TEMP 36.7; O2SAT 96
--- NOTE | 2023-10-31 08:05 | PM.IMPN ---
Progress Note: A&P Assessment and Plan (1) MRSA bacteremia: Code(s): R78.81 - Bacteremia; B95.62 - Methicillin resistant Staphylococcus aureus infection as the cause of diseases classified elsewhere Status: Acute Assessment and Plan: monitor labs Iv Vancomycin Infectious disease pharmacist will consult with Echo to rule out endocarditis According to ID pharmacist gabrielen will need 14 days of IV antibioitcs and it also depends on the source ( Osteo, Endo, or complicated to uncomplicated bacteremia could indicate 2-6 weeks) Next blood cultures will be on . (2) Hypokalemia: Code(s): E87.6 - Hypokalemia Status: Acute Assessment and Plan: 3.7 stable will continue to montior (3) COPD with acute exacerbation: Code(s): J44.1 - Chronic obstructive pulmonary disease with (acute) exacerbation Status: Acute Assessment and Plan: stable will treat as needs arise (4) Hypertension: Code(s): I10 - Essential (primary) hypertension Status: Acute Assessment and Plan: stable continue home medication change as needed. Subjective Date/time seen: 10/31/23 08:05 Interval history: Patient has remained afebrile and is eating and drinking without difficulties Patient is very anxious and is wanting to go home. I did discuss with patient that the plan is for him to have a set of blood cultures that does not grow anything. Once we get that we will plan for him to have Out patient antibiotics. Patient next set of blood cultures will be . Exam Const: General: cooperative, healthy appearing, comfortable, no acute distress, well developed, alert, awake and Physically active Orientation/consciousness: oriented to person, oriented to place and oriented to time HENMT: Head: normal to inspection, normocephalic and atraumatic Ears: hearing grossly normal bilaterally and external ears normal Face/Nose/Sinus: Normal external nose present Eyes: General: appearance normal, both eyes and all related structures Periorbital: periorbital findings normal Sclera: sclerae normal Pupils: Equal, round and reactive pupils present Neck: Neck: normal visual inspection Chest: Chest palpation & inspection: normal inspection of the chest Resp: Effort & Inspection: normal respiratory effort, able to speak in complete sentences and no respiratory distress Auscultation: clear to auscultation bilaterally Cardio: Jugular venous distension: no JVD Rate: regular rate Rhythm: regular rhythm GI: Inspection: normal to inspection Auscultation: normal bowel sounds Skin: General skin exam: normal color and no rashes or lesions noted Neuro: General: oriented to person, oriented to place and oriented to time Cranial nerves: Yes Equal, round and reactive pupils present Extrem: General: normal to inspection Objective Data Vital Signs Vital Signs: Vital Signs - 24 hr 10/30/23 16:00 10/31/23 00:00 Temperature 97.9 F 97.1 F L Pulse Rate 78 72 Respiratory Rate 14 16 Blood Pressure 169/97 H 142/89 H Pulse Oximetry 97 96 Oxygen Delivery Room Air Room Air Intake/Output Intake/Output: Intake & Output 10/28/23 10/29/23 10/30/23 10/31/23 23:59 23:59 23:59 23:59 Intake Total 840 3150 240 Output Total 300 Balance 840 2850 240 Meds/Results Medications: Active Medications Generic Name Dose Route Start Last Admin Trade Name Freq PRN Reason Stop Dose Admin Acetaminophen 650 mg 10/29/23 16:41 Acetaminophen 325 Mg Tablet PO Q4H PRN Mild Pain (1-3) or Fever Hydrocodone Bitart/Acetaminophen 1 tab 10/29/23 16:41 10/30/23 20:48 Hydrocodone/Acetaminophen (*Crx) 5-325 Mg Tablet PO 1 tab Q4H PRN Administration Moderate Pain (4-6) Bisacodyl 5 mg 10/29/23 16:41 Bisacodyl 5 Mg Tablet Ec PO DAILY PRN Constipation Enoxaparin Sodium 40 mg 10/30/23 09:00 10/30/23 09:39 Enoxaparin 40 Mg/0.4 Ml Syringe SUB-Q Not Giv
--- NOTE | 2023-10-31 10:34 | PC.NURSE ---
Notifjesus Monte of patient leaving [place].
--- NOTE | 2023-10-31 10:35 | PC.NURSE ---
Pt's sister was given update at the [id number] station. She then went to the room and pt could be heard yelling in the room. Pt then called out and said he was ready to go. Risks of leaving was discussed in depth with patient and his sister. Pt's IV was removed and AMA paper was reviewed and signed. Pt ambulated out of the hospital.
--- NOTE | 2023-11-01 10:48 | PCCCNOTE ---
Spoke to Kim BRAXTON at Dr. Shah office about the sensitivity report and that the pt left AMA yesterday. Faxed sensitivity report to Dr. Shah office as well as contact for [facility] IV infusion services.
--- NOTE | 2023-11-01 13:16 | PC.NURSE ---
Attempted f/u call, voice mailbox not set up
--- NOTE | 2023-11-02 12:20 | PC.NURSE ---
Discharge call back attempted, no answer, voice mail not set up
--- NOTE | 2023-11-05 09:46 | PC.NURSE ---
Unable to reach patient for discharge call back
== END 2023-10-31 10:35 | disposition left against medical advice (07) | DRG 724 ==
LOC: CHSED 16:45 → CHS2ND 17:02
PROVIDERS: Admitting Provider Internal Medicine; Emergency Provider Family Medicine; PCP Family Medicine; Visit Provider Internal Medicine
DX: R78.81 Bacteremia (principal); B95.62 Methicillin resistant Staphylococcus aureus infection as the cause of diseases classified elsewhere; J44.1 Chronic obstructive pulmonary disease with (acute) exacerbation; E87.6 Hypokalemia; I10 Essential (primary) hypertension; F41.9 Anxiety disorder, unspecified; F32.A Depression, unspecified; F17.210 Nicotine dependence, cigarettes, uncomplicated
CPT/HCPCS: 36415; 80048; 80202; 82565; 85025; 87040; 87147; 87181; 93306; 99285; A9270; G0378; G0379; J2060; J2270; J3370

== ENCOUNTER 2023-11-06 14:02 | Outpatient (CLI) | payer OTHER, SELFPAY ==
[2023-11-06 14:29] LABS: Basophils Absolute Auto 0.05 K/mm3 (0.00-0.10); Basophils Percent Auto 0.5 % (0.0-1.0); Eosinophils Absolute Auto 0.01 K/mm3 (0.02-0.50); Eosinophils Percent Auto 0.1 % (1.0-6.0); Hematocrit 40.4 % (40.0-54.0); Hemoglobin 13.3 g/dL (14.0-18.0); Immature Granulocyte Absolute 0.03 K/mm3 (0.00-0.00); Immature Granulocyte Percent A 0.3 % (0.0-0.0); Lymphocytes Absolute Auto 0.97 K/mm3 (1.10-4.50); Lymphocytes Percent Auto 9.9 % (18.0-42.0); Mean Corpuscular HGB Conc 32.9 g/dL (32-36); Mean Corpuscular Hemoglobin 30.6 pg (27.0-31.0); Mean Corpuscular Volume 92.9 fL (78.0-102.0); Mean Platelet Volume 9.4 fl (8.7-11.0); Monocytes Absolute Auto 0.24 K/mm3 (0.10-0.90); Monocytes Percent Auto 2.4 % (2.0-11.0); Neutrophils Absolute Auto 8.53 K/mm3 (1.70-7.20); Neutrophils Percent Auto 86.8 % (50.0-70.0); Platelet Count Result 382 K/mm3 (150-420); Red Blood Count 4.35 M/mm3 (4.70-6.10); Red Cell Distribution Width 12.7 % (11.6-14.4); White Blood Count 9.8 K/mm3 (4.8-10.8)
[2023-11-06 14:52] LABS: Alanine Aminotransferase 20 U/L (16-63); Albumin Level 3.5 g/dL (3.4-5.0); Alkaline Phosphatase 83 U/L (46-116); Anion Gap 12 mmol/L (4-12); Aspartate Amino Transferase 16 U/L (15-37); Bilirubin,Total 0.4 mg/dL (0.00-1.00); Blood Urea Nitrogen 18 mg/dL (7-18); CRP 1.6 mg/dL (0.0-0.9); Calcium 8.9 mg/dL (8.5-10.1); Carbon Dioxide 25 mmol/L (21-32); Chloride 103 mmol/L (98-108); Estimated Glomerular Filt Rate 59; Glucose 125 mg/dL (70-99); Osmolality Calculated 292 mOsm/kg (285-295); Potassium 4.1 mmol/L (3.5-5.1); Sodium 140 mmol/L (136-145)
== END 2023-11-06 14:03 | disposition home or self-care (01) ==
LOC: CHSLAB 14:05
PROVIDERS: PCP Family Medicine; Visit Provider Family Medicine
DX: R78.81 Bacteremia (principal)
CPT/HCPCS: 36415; 80053; 85025; 86140; 87040

== ENCOUNTER 2024-04-09 10:41 | Outpatient (CLI) | payer OTHER, SELFPAY ==
[2024-04-09 10:54] LABS: Basophils Absolute Auto 0.04 K/mm3 (0.00-0.10); Basophils Percent Auto 0.5 % (0.0-1.0); Eosinophils Percent Auto 3.9 % (1.0-6.0); Hematocrit 40.4 % (40.0-54.0); Hemoglobin 14.2 g/dL (14.0-18.0); Immature Granulocyte Absolute 0.03 K/mm3 (0.00-0.00); Immature Granulocyte Percent A 0.4 % (0.0-0.0); Lymphocytes Absolute Auto 1.81 K/mm3 (1.10-4.50); Lymphocytes Percent Auto 23.8 % (18.0-42.0); Mean Corpuscular HGB Conc 35.1 g/dL (32-36); Mean Corpuscular Hemoglobin 31.6 pg (27.0-31.0); Mean Corpuscular Volume 89.8 fL (78.0-102.0); Monocytes Absolute Auto 0.74 K/mm3 (0.10-0.90); Monocytes Percent Auto 9.7 % (2.0-11.0); Neutrophils Absolute Auto 4.69 K/mm3 (1.70-7.20); Neutrophils Percent Auto 61.7 % (50.0-70.0); Platelet Count Result 236 K/mm3 (150-420); Red Cell Distribution Width 13.2 % (11.6-14.4); White Blood Count 7.6 K/mm3 (4.8-10.8)
[2024-04-09 12:09] LABS: Alanine Aminotransferase 17 U/L (16-63); Albumin Level 3.8 g/dL (3.4-5.0); Alkaline Phosphatase 114 U/L (46-116); Anion Gap 8 mmol/L (4-12); Aspartate Amino Transferase 19 U/L (15-37); Bilirubin,Total 0.6 mg/dL (0.00-1.00); Blood Urea Nitrogen 11 mg/dL (7-18); Calcium 9.1 mg/dL (8.5-10.1); Carbon Dioxide 29 mmol/L (21-32); Chloride 102 mmol/L (98-108); Estimated Glomerular Filt Rate > 60; Folic Acid 6.2 ng/mL (8.6->20); Glucose 109 mg/dL (70-99); Osmolality Calculated 288 mOsm/kg (285-295); Sodium 139 mmol/L (136-145); Total Protein 7.7 g/dL (6.4-8.2); Vitamin B12 516 pg/mL (193-986)
[2024-04-09 12:38] LABS: Thyroid Stimulating Hormone Reflex 1.59 u/IU/mL (0.36-3.74)
== END 2024-04-09 10:42 | disposition home or self-care (01) ==
PROVIDERS: PCP Family Medicine; Visit Provider Family Medicine
DX: E53.8 Deficiency of other specified B group vitamins (principal); E03.9 Hypothyroidism, unspecified; I10 Essential (primary) hypertension
CPT/HCPCS: 36415; 80053; 82607; 82746; 84443; 85025

== ENCOUNTER 2024-04-30 09:15 | Outpatient (CLI) | payer OTHER, SELFPAY ==
--- NOTE | 2024-04-30 10:34 | WPDPFTINT ---
PFT Procedure Performed PFT Procedure Performed Spirometry with Pre/Post Bronchodilator Plethysmography (Lung Vol) Diffusing Cap (DLCO) PFT Interpretation DOS: 04/30/2024 REQUESTING: Bc Renae DO REASON FOR TESTING: Dyspnea PULMONARY FUNCTION TESTS The patient had difficulty performing the maneuvers, and the results are not reliably reproducible pre and post bronchodilator. Spirometry: The pre-bronchodilator FEV1 is 3.10 L, 101% predicted, normal. The pre-bronchodilator FVC is 4.63 L, 121%, normal. The FEV1/FVC ratio is 65%, decreased, consistent with airflow obstruction. After bronchodilator, the FEV1 is 2.57 L, 86%, decreased 15%. The FVC is 3.99 L after bronchodilator, 104%, decreased 14%.. The FEV1/FVC ratio is 65% after bronchodilator. Lung volumes: The total lung capacity is 7.05 L, 119%, upper limit of normal. The residual volume is 2.41 L, 111%, normal. The RV/TLC is 34%, normal. Airway resistance is elevated. Diffusion: DLCO is 16.6, 75%, normal. The DLCO/VA is 3.29, 86% predicted, normal. Flow volume loop: The flow volume loop shows coving of the expiratory limb consistent with airflow obstruction. The inspiratory limb is not reproducible. IMPRESSION: Moderate airflow obstruction without response to bronchodilator, normal lung volumes, normal diffusion. Lack of response to bronchodilator should not preclude use if clinically indicated. No prior studies to compare. Kell Orozco MD
== END 2024-04-30 09:16 | disposition home or self-care (01) ==
PROVIDERS: PCP Family Medicine; Visit Provider Family Medicine
DX: R06.00 Dyspnea, unspecified (principal); R94.2 Abnormal results of pulmonary function studies
CPT/HCPCS: 94060; 94726; 94729

== ENCOUNTER 2024-09-15 11:19 | Outpatient (CLI) | payer OTHER, SELFPAY ==
[2024-09-15 11:39] LABS: Basophils Percent Auto 0.5 % (0.2-1.2); Eosinophils Absolute Auto 0.2 K/mm3 (0-0.3); Eosinophils Percent Auto 2.3 % (0-4.4); Hematocrit 42.8 % (42.0-52.0); Hemoglobin 14.6 g/dL (14.0-18.0); Immature Granulocyte Absolute 0.02 K/mm3 (0.00-0.031); Immature Granulocyte Percent A 0.3 % (0-0.5); Lymphocytes Absolute Auto 1.66 K/mm3 (0.9-3.2); Lymphocytes Percent Auto 21.4 % (18.3-44.2); Mean Corpuscular HGB Conc 34.1 g/dl (32-36); Mean Corpuscular Hemoglobin 32.2 pg (26-34); Mean Corpuscular Volume 94.3 fl (80-100); Mean Platelet Volume 10.5 fl (7.4-10.4); Monocytes Absolute Auto 0.8 K/mm3 (0.1-0.6); Monocytes Percent Auto 10.3 % (2.6-8.5); Neutrophils Absolute Auto 5.1 K/mm3 (1.3-6.7); Neutrophils Percent Auto 65.2 % (45.5-73.1); Platelet Count Result 235 k/mm3 (150-375); Red Blood Count 4.54 M/mm3 (4.6-6.20); Red Cell Distribution Width 13.5 % (11.5-14.5); White Blood Count 7.8 K/mm3 (4.5-10.0)
[2024-09-15 11:52] LABS: Alanine Aminotransferase 22 U/L (6-50); Albumin Level 4.3 g/dL (3.5-5.1); Alkaline Phosphatase 97 U/L (38-126); Anion Gap 12 mmol/L (4-12); Aspartate Amino Transferase 28 U/L (17-59); Bilirubin,Total 1.1 mg/dL (0.2-1.3); Blood Urea Nitrogen 14 mg/dL (9-20); Calcium 9.4 mg/dL (8.4-10.2); Carbon Dioxide 26 mmol/L (22-30); Chloride 106 mmol/L (98-107); Cholesterol 95 mg/dL (0-200); Estimated Glomerular Filt Rate > 60; Glucose 109 mg/dL (65-110); HDL Direct 31 mg/dL; Magnesium 2.1 mg/dL (1.6-2.3); Potassium 4.4 mmol/L (3.4-5.0); Sodium 144 mmol/L (137-145); Triglycerides 96 mg/dL (<150)
[2024-09-15 12:03] LABS: LDL Cholesterol Direct 38 mg/dL
[2024-09-15 13:52] LABS: Hemoglobin A1C 5.8 % (<5.7)
--- OUTSIDE RECORDS SUMMARY | 2024-09-15 14:20 | XMS_ITS | Encounter Summary ---
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 Answer Date of Assessment Author Status No 12/27/2023 1:00 PM RAISSAT Damaris Ospina RN Active * Do you have serious difficulty walking or climbing stairs? Answer Date of Assessment Author Status No 12/27/2023 1:00 PM RAISSAT Damaris Ospina RN Active * Do you have difficulty dressing or bathing? Answer Date of Assessment Author Status No 12/27/2023 1:00 PM Damaris Washington RN Active * Because of a physical, mental, or emotional condition, do you have difficulty doing errands alone such as visiting a doctor's office or shopping? Answer Date of Assessment Author Status No 12/27/2023 1:00 PM Damaris Washington RN Active documented as of this encounter Mental Status * Because of a physical, mental, or emotional condition, do you have serious difficulty concentrating, remembering, or making decisions? Answer Entry Date Author Status No 12/27/2023 1:00 PM CDT Damaris Ospina RN Active documented in this encounter Plan of Treatment Not on file documented as of this encounter Goals Goal Patient Goal Type Associated Problems Recent Progress Patient-Stated? Author Patient will return to prior living situation and remain independent in ADLs upon discharge from hospital Lifestyle 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 RN documented as of this encounter Visit Diagnoses Not on filedocumented in this encounter Care Teams Mate Ship Relationship Specialty Start Date End Date Bc Renae DO [address] [place] [address] PCP - General FAMILY PRACTICE 01/14/24 documented as of this encounter
--- OUTSIDE RECORDS SUMMARY | 2024-09-15 14:20 | XMS_ITS | Clinical Summary ---
Author Organization [facility] Address [facility] [place] [address] Care Team Providers Care Financial Service Professional Name Role Phone [facility] Primary Care Provider [phone] Allergies Active Allergy Reactions Criticality Noted Date Comments Aspirin Swelling 06/21/2021 Tongue swelling Medications albuterol sulfate HFA (PROAIR HFA) 108 (90 Base) MCG/ACT inhaler Inhale 2 puffs into the lungs every 4 (four) hours as needed for Wheezing. 18 g 06/21/2021 Active lidocaine (LIDODERM) 5 % Place 1 patch onto the skin daily for 30 days. Remove & Discard patch within 12 hours or as directed by 30 patch 08/22/2024 09/21/19 25 Active magnesium oxide (MAG-OX) 400 MG tablet Take 1 tablet (400 mg total) by mouth daily. 30 tablet 08/22/2024 Active Active Problems Problem Noted Date Diagnosed Date ACS (acute coronary syndrome) ([facility]) 12/27/2023 Encounters Date Type Department Care Team Description 09/15/2024 Travel 08/22/2024 2:19 PM LACQUER SHADER - 08/22/2024 5:55 PM [facility] Emergency [facility] Emergency Room [address] [place] [id number] Darling Taylor MD Chest Pain Discharge Disposition: Home or Self Care (Routine Discharge) from Last 3 Months Social History Tobacco Use Types Packs/Day Years Used Date Smoking Tobacco: Unknown Tobacco Cessation:Counseling Given: Not Answered Sex and Gender Information Value Date Recorded Sex Assigned at Male 08/22/2024 2:43 PM LACQUER SHADER Legal Sex Male 11:47 PM CDT Gender Identity Not on file Sexual Orientation Not on file Last Filed Vital Signs Vital Sign Reading Time Taken Comments Blood Pressure 115/77 08/22/2024 5:30 PM LACQUER SHADER Pulse 94 08/22/2024 5:30 PM LACQUER SHADER Temperature 36.4 C (97.6 F) 08/22/2024 5:30 PM LACQUER SHADER Respiratory Rate 18 08/22/2024 5:30 PM LACQUER SHADER Oxygen Saturation 99% 08/22/2024 5:30 PM LACQUER SHADER Inhaled Oxygen Concentration - - Weight 79.4 kg (175 lb) 08/22/2024 2:30 PM LACQUER SHADER Height 170.2 cm (5' 7 ) 08/22/2024 2:30 PM LACQUER SHADER Body Mass Index 27.41 08/22/2024 2:30 PM LACQUER SHADER Plan of Treatment Health Maintenance Due Date Last Done Comments ASCVD Statin 1960 Colorectal Cancer Screening Colonoscopy (10 Years) 1960 Annual Physical 1965 Pneumococcal Vaccine: Pediat rics (0 to 5 Years) and At-Risk Patients (6 to 64 Years) (1 of 2 - PCV) 1968 Hepatitis C 1980 DTaP, Tdap and Td Vaccines ( 1 - Tdap) 1981 Zoster Vaccines (1 of 2) 2012 RSV Immunization or 60+ Years (1 - Risk 60-74 years 1-dose series) 2022 COVID-19 Vaccine ( - 2023-2 5 season) 2024 Influenza Adult (#1) 2024 Meningococcal B Vaccine Aged Out No l onger eligible based on patient's age to complete this topic Meningococcal Vaccine Aged Out No marsha cesar eligible based on patient's age to complete this topic RSV Immunizations Under 20 Months Aged Out No longer eligible based on patient's age to complete this topic Goals Goal Patient Goal Type Associated Problems Recent Progress Patient-Stated? Author Patient will return to prior living situation and remain independent in ADLs upon discharge from hospital Lifestyle 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 hand lacer Procedure Name Priority Date/Time Associated Diagnosis Comments TROPONIN, QUANT STAT 08/22/2024 4:19 PM LACQUER SHADER XR CHEST PA+LAT STAT 08/22/2024 3:14 PM LACQUER SHADER XR LUMB SPINE 3V STAT 08/22/2024 3:14 PM LACQUER SHADER XR PELVIS+LT HIP 2V STAT 08/22/2024 3 :[address] HEAD WO CON STAT 08/22/2024 3:04 PM LACQUER SHADER MAGNESIUM STAT 08/22/2024 2:12 PM LACQUER SHADER CK (CPK) STAT 08/22/2024 2:12 PM LACQUER SHADER TROPONIN, QUANT STAT 08/22/2024 2:12 PM LACQUER SHADER COMPREHENSIVE METABOLIC PANEL STAT 08/22/2024 2:12 PM LACQUER SHADER CBC W/DIFF AUTOMATED STAT 08/22/2024 2:12 PM LACQUER SHADER ECG 12-LEAD Routine 08/22/2024 2:11 PM LACQUER SHADER from Last 3 Months Results * TROPONIN, QUANT (08/22/2024 4:19 PM LACQUER SHADER) Only the most recent of2 resultswithin the time period is included. TROPONIN I HIGH SENSITIVITY 10 0 - 75 ng/L 08/22/2024 4:50 PM LACQUER SHADER [facility] Comment: HIGH DOSES OF BIOTIN, TROPONIN-SPECIFIC AUTOANTIBODIES, AND ANTIBODY THERAPY CONTAINING HAMA MAY INTERFERE WITH THIS TEST RESULT. CORRELATION TO CLINICAL HISTORY AND PRESENTATION RECOMMENDED. 08/22/2024 4:19 PM LACQUER SHADER us Darling Taylor MD LABORATORY Final Resu lt [facility] [address] [place] [id number], [place] [phone] * XR LUMB SPINE 3V (08/22/2024 3:14 PM LACQUER SHADER) Anatomical Region Laterality Modality Spine Radiographic Lola ging 08/22/2024 3:24 PM LACQUER SHADER Impressions 08/22/2024 3:25 PM LACQUER SHADER IMPRESSION: Diffuse degenerative changes of the lumbar spine. Ordered By: DARLING TAYLOR Interpreted By: Rodney Valentino MD, 08/22/2024 3:24 PM Narrative 08/22/2024 3:25 PM LACQUER SHADER [address] [place] [address] Procedure(s): XR LUMB SPINE 3V Date of service: 08/22/2024 3:00 PM Provided clinical information: 64 years, Male, fall, low back pain Procedure and materials: 3 views lumbar spine. Comparison studies: None. Findings: Relatively normal height of the thoracic vertebra. Loss height of the disc space present throughout the lumbar spine. Facet hypertrophic changes L4-5 and L5-S1. No fracture, dislocation or acute bony abnormality. Procedure Note Rodney Valentino MD - 08/22/[address] [place] [address] Procedure(s): XR LUMB SPINE 3V Date of service: 08/22/2024 3:00 PM Provided clinical information: 64 years, Male, fall, low back pain Procedure and materials: 3 views lumbar spine. Comparison studies: None. Findings: Relatively normal height of the thoracic vertebra. Loss height of the discspace present throughout the lumbar spine. Facet hypertrophic changes L4-5and L5-S1. No fracture, dislocation or acute bony abnormality. IMPRESSION: Diffuse degenerative changes of the lumbar spine. Ordered By: DARLING TAYLOR Interpreted By: Rodney Valentino MD, 08/22/2024 3:24 PM us Darling Taylor MD GENERAL IMAGING Final Resu lt * XR CHEST PA+LAT (08/22/2024 3:14 PM LACQUER SHADER) Anatomical Region Laterality Modality Chest Radiographic Lola ging 08/22/2024 3:19 PM LACQUER SHADER Impressions 08/22/2024 3:21 PM LACQUER SHADER IMPRESSION: 1. No radiographic evidence of active disease in the chest. Referred By: Interpreted By: Sarah Bartlett DO, 08/22/2024 3:19 PM Narrative 08/22/2024 3:21 PM LACQUER SHADER [address] [place] [address] CLINICAL INDICATION: 64-year-old male. Reason for examination: Chest pain. Patient fell. TECHNIQUE: Supine AP and lateral views of the chest. COMPARISON: Two-view chest study 06/21/2021 FINDINGS: Normal heart size and pulmonary vascular distribution. The lungs are clear of infiltrates. No pleural effusion or consolidation. There is no pneumothorax. Bony thorax unremarkable. Procedure Note Sarah Bartlett MD - 08/22/[address] [place] [address] CLINICAL INDICATION: 64-year-old male. Reason for examination: Chest pain. Patient fell. TECHNIQUE: Supine AP and lateral views of the chest. COMPARISON: Two-view chest study 06/21/2021 FINDINGS: Normal heart size and pulmonary vascular distribution. The lungs are clear of infiltrates. No pleural effusion or consolidation.There is no pneumothorax. Bony thorax unremarkable. IMPRESSION: 1. No radiographic evidence of active disease in the chest. Referred By: Interpreted By: Sarah Bartlett DO, 08/22/2024 3:19 PM Darling Taylor MD GENERAL IMAGING Final Resu lt * XR PELVIS+LT HIP 2V (08/22/2024 3:14 PM LACQUER SHADER) Anatomical Region Laterality Modality Hip, Pelvis Radiographic Lola ging 08/22/2024 3:21 PM LACQUER SHADER Impressions 08/22/2024 3:22 PM LACQUER SHADER IMPRESSION: 1. NO EVIDENCE OF ACUTE FRACTURE OR DISLOCATION. 2. CHRONIC DEGENERATIVE OSTEOARTHRITIS BOTH HIPS. Signed: Rudolph Crespo MD Referred By: Interpreted By: Rudolph Crespo MD, 08/22/2024 3:21 PM Narrative 08/22/2024 3:22 PM LACQUER SHADER [address] [place] [address] PATIENT NAME: TASIA WATSON EXAM: Pelvis and left hip 2 view DATE OF EXAM: 08/22/2024 COMPARISON EXAM: None INDICATION: Trauma, left hip pain TECHNIQUE: AP pelvis, AP and frog lateral left hip FINDINGS: There is no acute soft tissue abnormality. SI joints and pubic symphysis demonstrate no evidence of diastases. There is no evidence of acute left hip fracture or dislocation. No evidence of femoral head AVN. There is moderate chronic degenerative osteoarthritis involving both hips. Procedure Note Rudolph Crespo MD - 08/22/[address] [place] [address] PATIENT NAME: TASIA WATSON EXAM: Pelvis and left hip 2 view DATE OF EXAM: 08/22/2024 COMPARISON EXAM: None INDICATION: Trauma, left hip pain TECHNIQUE: AP pelvis, AP and frog lateral left hip FINDINGS: There is no acute soft tissue abnormality. SI joints and pubicsymphysis demonstrate no evidence of diastases. There is no evidence ofacute left hip fracture or dislocation. No evidence of femoral head AVN.There is moderate chronic degenerative osteoarthritis involving bothhips. IMPRESSION: 1. NO EVIDENCE OF ACUTE FRACTURE OR DISLOCATION. 2. CHRONIC DEGENERATIVE OSTEOARTHRITIS BOTH HIPS. Signed: Rudolph Crespo MD Referred By: Interpreted By: Rudolph Crespo MD, 08/22/2024 3:21 PM Darling Taylor MD GENERAL IMAGING Final Resu lt * CT HEAD WO CON (08/22/2024 3:04 PM LACQUER SHADER) Anatomical Region Laterality Modality Head Computed Tomogra phy 08/22/2024 3:21 PM LACQUER SHADER Impressions 08/22/2024 3:28 PM LACQUER SHADER IMPRESSION: 1. No acute intracranial abnormality. 2.Minimal small vessel ischemic disease and mild involutional changes 3. No linear or depressed calvarial fracture Referred By: Interpreted By: Sarah Bartlett DO, 08/22/2024 3:21 PM Narrative 08/22/2024 3:28 PM LACQUER SHADER [facility] [address] [place] [id number] CLINICAL INDICATION: 64-year-old male. Fall.Head injury 08/22/2024 3:18 PM, Claudia Larkin E: FALL POSTERIOR HEAD TRAUMA AND BACK PAIN TECHNIQUE: Non- enhanced CT of the brain is obtained according to standard protocol Images are filmed in soft tissue and bone window settings. The study is performed twice due to the patient's inability to remain still. Dose lowering technique was used for this study which may include, but is not limited to, dose reduction techniques, automated exposure control, use of iterative reconstruction and ALARA (As low As Reasonably Achievable)/Image Gently techniques. COMPARISON: No previous neuroimaging FINDINGS: There is no evidence of acute intracranial hemorrhage. No abnormal extra-axial fluid collections. There is no abnormal mass lesion or definite evidence of cerebral edema. There is bilateral symmetric involutional prominence of the ventricles and cerebral sulci consistent with mild generalized central and cortical atrophy. The ventricles and sulci are otherwise symmetrical without significant effacement or displacement. There are a few scattered foci of low attenuation changes in the deep and periventricular white matter consistent with small vessel ischemic changes. The hammonds/white matter junctions are otherwise distinct. The basilar cisterns are not effaced. Calcifications are present in the choroid plexus and pineal region. The orbits appear grossly intact. There is no linear or depressed calvarial fracture. Small mucoid retention cyst or polyp in the left maxillary sinus and left medial sphenoid sinus. Otherwise, the paranasal sinuses and mastoid air cells are clear. Procedure Note Sarah Bartlett MD - 08/22/2024 [facility] [address] [place] [address] CLINICAL INDICATION: 64-year-old male. Fall.Head injury 08/22/2024 3:18 PM, Claudia Larkin E: FALL POSTERIOR HEAD TRAUMA AND BACKPAIN TECHNIQUE: Non- enhanced CT of the brain is obtained according to standard protocolImages are filmed in soft tissue and bone window settings. The study is performed twice due to the patient's inability to remainstill. Dose lowering technique was used for this study which may include, but isnot limited to, dose reduction techniques, automated exposure control, useof iterative reconstruction and ALARA (As low As ReasonablyAchievable)/Image Gently techniques. COMPARISON: No previous neuroimaging FINDINGS: There is no evidence of acute intracranial hemorrhage. No abnormalextra-axial fluid collections. There is no abnormal mass lesion ordefinite evidence of cerebral edema. There is bilateral symmetric involutional prominence of the ventricles andcerebral sulci consistent with mild generalized central and corticalatrophy. The ventricles and sulci are otherwise symmetrical withoutsignificant effacement or displacement. There are a few scattered foci oflow attenuation changes in the deep and periventricular white matterconsistent with small vessel ischemic changes. The hammonds/white matterjunctions are otherwise distinct. The basilar cisterns are not effaced.Calcifications are present in the choroid plexus and pineal region. The orbits appear grossly intact. There is no linear or depressed calvarial fracture. Small mucoid retention cyst or polyp in the left maxillary sinus and leftmedial sphenoid sinus. Otherwise, the paranasal sinuses and mastoid air cells are clear. IMPRESSION: 1. No acute intracranial abnormality. 2.Minimal small vessel ischemic disease and mild involutional changes 3. No linear or depressed calvarial fracture Referred By: Interpreted By: Sarah Bartlett DO, 08/22/2024 3:21 PM us Darling Taylor MD CT Final Resu lt * (ABNORMAL) COMPREHENSIVE METABOLIC PANEL (08/22/2024 2:12 PM LACQUER SHADER) [facility] GLUCOSE 113(H) 70 - 99 MG/DL 08/22/2024 3:12 PM [facility] BUN 11 7 - 18 MG/DL 08/22/2024 3:12 PM [facility] CREATININE S/P/B 1.16 0.7 - 1.3 MG/DL 08/22/2024 3:12 PM [facility] SODIUM S/P/B 139 136 - 145 MMOL/L 08/22/2024 3:12 PM [facility] POTASSIUM S/P/B 3.6 3.5 - 5.1 MMOL/L 08/22/2024 3:12 PM [facility] CHLORIDE S/P/B 103 100 - 108 MMOL/L 08/22/2024 3:12 PM [facility] CO2 25.1 21 - 32 MMOL/L 08/22/2024 3:12 PM [facility] CALCIUM S/P/B 9.2 8.5 - 10.1 MG/DL 08/22/2024 3:12 PM [facility] BILIRUBIN TOTAL S/P/B 0.6 0.2 - 1.2 MG/DL 08/22/2024 3:12 PM [facility] TOTAL PROTEIN S/P/B 7.7 6.4 - 8.2 G/DL 08/22/2024 3:12 PM [facility] ALBUMIN S/P/B 3.6 3.4 - 5.0 G/DL 08/22/2024 3:12 PM [facility] AST 35 15 - 37 U/L 08/22/2024 3:12 PM [facility] ALT 24 16 - 60 U/L 08/22/2024 3:12 PM [facility] ALKALINE PHOSPHATASE S/P/B 95 50 - 136 U/L 08/22/2024 3:12 PM [facility] ANION GAP 10.9 5 - 15 MMOL/L 08/22/2024 3:12 PM [facility] BUN CREATININE RATIO 9.5 6 - 26 08/22/2024 3:12 PM [facility] A/G RATIO 0.9(L) 1.0 - 2.0 RATIO 08/22/2024 3:12 PM [facility] GFR ESTIMATE 71(L) >90 ML/MIN/1.7 3 M2 08/22/2024 3:12 PM [facility] Comment: NOTE: eGFR is not calculated for patients <18 years of age. This is an estimated GFR calculation using the new CKD EPI creatinine equation without race and so does not require a correction factor for race. This estimated GFR should not be used for calculating drug doses. 08/22/2024 2:12 PM LACQUER SHADER us Darling Taylor MD LABORATORY Final Resu lt [facility] [address] [place] [address], [place] [phone] * (ABNORMAL) CBC W/DIFF AUTOMATED (08/22/2024 2:12 PM LACQUER SHADER) WBC 6.86 4.4 - 11.0 x10'3/uL 08/22/2024 2:50 PM [facility] RBC 4.25(L) 4.50 - 5.90 x10'6/uL 08/22/2024 2:50 PM [facility] HGB 13.7(L) 14.0 - 17.5 G/DL 08/22/2024 2:50 PM [facility] HCT 38.3(L) 41.5 - 50.4 % 08/22/2024 2:50 PM [facility] MCV 90.1 80.0 - 96.0 FL 08/22/2024 2:50 PM [facility] MCH 32.2(H) 26.5 - 31.4 PG 08/22/2024 2:50 PM [facility] MCHC 35.8(H) 31.9 - 34.8 G/DL 08/22/2024 2:50 PM [facility] RDW 13.5 12.3 - 14.3 % 08/22/2024 2:50 PM [facility] PLT 186 151 - 353 x10'3/uL 08/22/2024 2:50 PM [facility] MPV 10.1 9.7 - 11.9 FL 08/22/2024 2:50 PM [facility] RBC MORPHOLOGY NORMAL 08/22/2024 2:50 PM [facility] PLT MORPH. NORMAL 08/22/2024 2:50 PM [facility] WBC MORPHOLOGY NORMAL 08/22/2024 2:50 PM [facility] LYMPHOCYTES % 4.7(L) 15.8 - 45.0 % 08/22/2024 2:50 PM [facility] NEUTROPHILS % 85.5(H) 42.1 - 71.9 % 08/22/2024 2:50 PM [facility] MONOCYTES % 7.4 5.7 - 12.5 % 08/22/2024 2:50 PM [facility] EOSINOPHILS 1.9 0.0 - 5.6 % 08/22/2024 2:50 PM [facility] BASOPHILS 0.4 0.0 - 1.3 % 08/22/2024 2:50 PM LACQUER SHADER [facility] ABS. NEUTROPHILS 5.86 1.40 - 6.00 x10'3/uL 08/22/2024 2:50 PM LACQUER SHADER [facility] IMMATURE GRANS % 0.1 0.0 - 0.5 % 08/22/2024 2:50 PM LACQUER SHADER [facility] ABS. LYMPHOCYTES 0.32(L) 0.80 - 4.70 x10'3/uL 08/22/2024 2:50 PM LACQUER SHADER [facility] 08/22/2024 2:12 PM LACQUER SHADER Darling Taylor MD LABORATORY Final Resu lt Performing Organization Address [facility]/ZIP Co de Phone Number [facility] [address] [place] [address], [place] [phone] * (ABNORMAL) MAGNESIUM (08/22/2024 2:12 PM LACQUER SHADER) MAGNESIUM 1.4(L) 1.8 - 2.4 MG/DL 08/22/2024 3:12 PM LACQUER SHADER [facility] 08/22/2024 2:12 PM LACQUER SHADER Darling Taylor MD LABORATORY Final Resu lt [facility] [address] [place] [address], [place] [phone] * CK (CPK) (08/22/2024 2:12 PM LACQUER SHADER) CPK 139 39 - 308 U/L 08/22/2024 3:12 PM LACQUER SHADER [facility] 08/22/2024 2:12 PM LACQUER SHADER us Darling Taylor MD LABORATORY Final Resu lt [facility] [address] [place] [address], [place] [phone] * ECG 12 lead (08/22/2024 2:11 PM LACQUER SHADER) 08/22/2024 2:11 PM LACQUER SHADER Narrative [facility] - 08/22/2024 4:31 PM LACQUER SHADER [facility] Test Date: 2024-08-22 Pat Name: TASIA WATSON Department: 85 Room: [place] [address] Gender: Male Patient Educator: : 1960 Requested By: DARLING TAYLOR Order Number: [id number] Reading : Stan Blount Measurements Intervals [place] Rate: 89 P: 25 SD: 168 QRS: -17 QRSD: 91 T: 58 QT: 340 QTc: 415 Interpretive Statements SINUS RHYTHM INFERIOR MYOCARDIAL INFARCTION , PROBABLY OLD [40+ ms Q WAVE AND/OR ST/T ABNORMALITY IN II/aVF] MODERATE T-WAVE ABNORMALITY, CONSIDER LATERAL ISCHEMIA [-0.1+ mV T-WAVE IN I/aVL/V5/V6] Compared to ECG 12/29/2023 14:03:24 T-wave abnormality now present Possible ischemia now present Myocardial infarct finding still present UER SHADER Procedure Note Stan Blount MD - 08/22/2024 [facility] Test Date: 2024-08-22 Pat Name: TASIA WATSON Department: 85 Room: [place] [address] Gender: Male Patient Educator: : 1960 Requested By: DARLING TAYLOR Order Number: [id number] Reading : Stan Blount Measurements Intervals [place] Rate: 89 P: 25 SD: 168 QRS: -17 QRSD: 91 T: 58 QT: 340 QTc: 415 Interpretive Statements SINUS RHYTHM INFERIOR MYOCARDIAL INFARCTION , PROBABLY OLD [40+ ms Q WAVE AND/OR ST/T ABNORMALITY IN II/aVF] MODERATE T-WAVE ABNORMALITY, CONSIDER LATERAL ISCHEMIA [-0.1+ mV T-WAVEIN I/aVL/V5/V6] Compared to ECG 12/29/2023 14:03:24 T-wave abnormality now present Possible ischemia now present Myocardial infarct finding still present UER SHADER us Darling Taylor MD ECG ORDERABLES Final Resu lt [facility] RAD from Last 3 Months Insurance Advance Directives * Full Code (Latest Code Status on File) Date Activated Date Inactivated Comments 12/27/2023 3:24 PM 12/29/2023 4:55 PM * Full Code Date Activated Date Inactivated Comments 12/27/2023 12:27 PM 12/27/2023 3:24 PM * Full Code Date Activated Date Inactivated Comments 12/27/2023 9:47 AM 12/27/2023 12:27 PM Care Teams Financial Service Professional Relationship Specialty Start Date End Date Bc Renae DO [address] [place] [address] PCP - General FAMILY PRACTICE 01/14/24
== END 2024-09-15 11:20 | disposition home or self-care (01) ==
LOC: ANHLAB 11:22
PROVIDERS: PCP Nurse Practitioner Family; Visit Provider Internal Medicine Cardiovascular Disease
DX: Z00.00 Encounter for general adult medical examination without abnormal findings (principal); G25.81 Restless legs syndrome
CPT/HCPCS: 36415; 80053; 80061; 83036; 83735; 85025

== ENCOUNTER 2025-03-02 14:28 | Outpatient (CLI) | payer OTHER, SELFPAY ==
--- OUTSIDE RECORDS SUMMARY | 2025-03-02 14:39 | XMS_ITS | Clinical Summary ---
Author Organization [facility] Address [address] [place] [address] Care Team Providers Care Member Of Parliament Name Role Phone BarbZenaida toussaintsh Velez Primary Care Provider Allergies Active Allergy Reactions Criticality Noted Date Comments Aspirin Swelling Medium 06/21/2021 Tongue swelling Medications atorvastatin (LIPITOR) 80 mg tablet Take 1 tablet (80 mg total) by mouth nightly at bedtime. 08/03/2024 Active magnesium oxide (MAG-OX) 400 mg (241.3 mg elemental magnesium) tablet Take 1 tablet (400 mg total) by mouth daily 08/22/2024 Active lidocaine (LIDODERM) 5 % Place 1 patch on the skin daily 08/22/2024 Active carvediloL (COREG) 12.5 mg tablet Take 1 tablet (12.5 mg total) by mouth 2 (two) times a day with meals 180 tablet 1 10/17/2024 04/15/20 25 Active losartan (COZAAR) 50 mg tablet Take 1 tablet (50 mg total) by mouth daily 90 tablet 1 10/17/2024 04/15/20 25 Active ticagrelor (BRILINTA) 90 mg tablet Take 1 tablet (90 mg total) by mouth 2 (two) times a day 180 tablet 1 10/17/2024 Active isosorbide mononitrate ER (IMDUR) 30 mg 24 hr tablet TAKE 1 TABLET BY MOUTH EVERY DAY 90 tablet 2 11/14/2024 Active Eliquis 5 mg tablet Take 1 tablet (5 mg total) by mouth 2 (two) times a day 180 tablet 3 01/09/2025 Active Active Problems Problem Noted Date Diagnosed Date Atherosclerosis of [place] co ronary artery of [place] heart without angina pectoris 09/11/2024 H/O right coronary artery stent placement 2024 Tobacco use 09/11/2024 Essential hypertension 09/11/2024 Cardiomyopathy, ischemic 09/11/2024 Mixed hyperlipidemia 09/11/2024 Paroxysmal atrial fibrillation 09/11/2024 Encounters Date Type Department Care Team Description 01/09/2025 Telephone [facility] Cardiology [address] [place] [address] Uzair Haider MD Med Refill from Last 3 Months Surgical History Surgery Date Site/Laterality Comments CARDIAC CATHETERIZATION CARDIAC CATHETERIZATION 09/25/2024 N/A Procedure: LEFT HEART CATHETERIZATION WITH CORONARY ANGIOGRAPHY AND WITH OR WITHOUT LEFT VENTRICULOGRAM [id number]; Surgeon: Uzair Haider MD; Location: [facility]; Service: Cardiovascular; Laterality: N/A; CARDIAC CATHETERIZATION 09/25/2024 N/A Procedure: Coronary Flow Velocity (CFR) / Instantaneous Flow Velocity (IFR), 1st Vessel; Surgeon: Uzair Haider MD; Location: [facility]; Service: Cardiovascular; Laterality: N/A; Medical History Medical History Date Comments Hypertension Family History Medical History Relation Name Comments Heart disease Mother Heart attack Mother's Brother Relation Name Status Comments Mother Mother's Brother Social History Tobacco Use Types Packs/Day Years Used Date Smoking Tobacco: Every Day Cigarettes AUDIT-C Answer Date Recorded Q1: How often do you have a drink containing alcohol? Never 09/25/2024 Q2: How many drinks containi ng alcohol do you have on a typical day when you are drinking? Patient does not drink Q3: How often do you have si x or more drinks on one occasion? Never 09/25/2024 Personal Safety Answer Date Recorded Have you ever been in or are you currently in a harmful physical or emotional relationship or is someone making you feel afraid or unsafe? Denies 09/25/2024 Sex and Gender Information Value Date Recorded Sex Assigned at Not on file Legal Sex Male 10:13 AM CDT Gender Identity Not on file Sexual Orientation Not on file Obstetrics History Last Filed Vital Signs Vital Sign Reading Time Taken Comments Blood Pressure 140/70 10/17/2024 8:31 AM CDT Pulse 71 10/17/2024 8:31 AM CDT Temperature 36.6 C (97.8 F) 09/25/2024 3:05 PM AIRPORT OPERATIONS OFFICER Respiratory Rate 18 09/25/2024 6:35 PM AIRPORT OPERATIONS OFFICER Oxygen Saturation 98% 10/17/2024 8:31 AM CDT Inhaled Oxygen Concentration - - Weight 85.4 kg (188 lb 3.2 oz) 10/17/2024 8:31 A M CDT Height 170.2 cm (5' 7) 10/17/2024 8:31 AM CDT Body Mass Index 29.48 10/17/2024 8:31 AM CDT Plan of Treatment Health Maintenance Due Date Last Done Comments Colon Cancer Screening-Colonoscopy 1960 Depression Screening 1960 Hepatitis C Screening 1962 Prostate Cancer Screening-PSA 1962 DTaP/Tdap/Td Vaccine (1 - Tdap) 1973 Hepatitis B Screening 1980 Regular Well Visit/Exam 18-64 1980 Pneumococcal vaccine <65 (1 of 2 - PCV) 1981 Zoster Vaccine (1 of 2) 2012 Influenza Vaccine (#1) 2025 Insurance [facility] Advance Directives For more information, please contact: [phone] * Full Code (Latest Code Status on File) Date Activated Date Inactivated Comments 09/25/2024 3:17 PM 09/25/2024 11:30 PM Care Teams Member Of Parliament Relationship Specialty Start Date End Date Bc Renae DO [address] [place] [address] PCP - General Family Medicine 09/11/24
--- OUTSIDE RECORDS SUMMARY | 2025-03-02 14:39 | XMS_ITS | Clinical Summary ---
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 18 g 1 Active magnesium oxide (MAG-OX) 400 MG tablet Take 1 tablet (400 mg total) by mouth daily. 30 tablet 5 Active amLODIPine (NORVASC) 5 MG tablet Take 1 tablet (5 mg total) by mouth every morning. 4 Active ELIQUIS 5 MG tablet Take 1 tablet (5 mg total) by mouth 2 (two) times daily. Active carvedilol (COREG) 12.5 MG tablet Take 1 tablet (12.5 mg total) by mouth 2 (two) times daily. 5 025 Active isosorbide mononitrate ER (IMDUR) 30 MG 24 hr tablet Take 1 tablet (30 mg total) by mouth daily. Active atorvastatin (LIPITOR) 80 MG tablet Take 1 tablet (80 mg total) by mouth daily. 5 Active losartan (COZAAR) 50 MG tablet Take 1 tablet (50 mg total) by mouth daily. 5 025 Active lidocaine (LIDODERM) 5 % APPLY 1 PATCH TRANSDERMALLY DAILY Active LAGEVRIO 200 MG capsule take 4 capsules by mouth every 12 hours for 5 days 5 Active ticagrelor (BRILINTA) 90 mg tablet Take 1 tablet (90 mg total) by mouth 2 (two) times daily. 5 Active traMADol (ULTRAM) 50 MG tabletIndicatio ns:Acute Pain < 7 Day Supply Take 1 tablet (50 mg total) by mouth every 6 (six) hours as needed. Indications: Acute Pain < 7 Day Supply 20 tablet 5 Active potassium chloride CR (K-TAB) 20 MEQ tablet Take 1 tablet (20 mEq total) by mouth daily for 30 days. 30 tablet 5 025 Active nitroglycerin (NITROSTAT) 0.[address] 1 tablet (0.4 mg total) under the tongue every 5 (five) minutes as needed for Chest Pain. 90 tablet 5 Active Active Problems Problem Noted Date Diagnosed Date ACS (acute coronary syndrome) ([facility]) 12/27/2023 Encounters Date Type Department Care Team Description 02/20/2025 9:29 AM CDT - 02/20/2025 4:42 PM CDT Emergency [facility] Emergency Room [address] [place] [address] Tanya Puente MD Chest Pain Discharge Disposition: Home or Self Care (Routine Discharge) 02/20/2025 Travel from Last 3 Months Social History Tobacco Use Types Packs/Day Years Used Date Smoking Tobacco: Unknown Tobacco Cessation:Counseling Given: Not Answered Sex and Gender Information Value Date Recorded Sex Assigned at Male 08/22/2024 2:43 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 Legal Sex Male 11:47 PM CDT Gender Identity Not on file Sexual Orientation Not on file Last Filed Vital Signs Vital Sign Reading Time Taken Comments Blood Pressure 117/53 02/20/2025 4:30 PM CDT Pulse 64 02/20/2025 4:30 PM CDT Temperature 35.6 C (96.1 F) 02/20/2025 9:35 AM CDT Respiratory Rate 29 02/20/2025 4:30 PM CDT Oxygen Saturation 99% 02/20/2025 1:00 PM CDT Inhaled Oxygen Concentration - - Weight 72.6 kg (160 lb) 02/20/2025 9:35 AM CDT Height 170.2 cm (5' 7) 02/20/2025 9:35 AM CDT Body Mass Index 25.06 02/20/2025 9:35 AM CDT Plan of Treatment Health Maintenance Due Date Last Done Comments Colorectal Cancer Screening Colonoscopy (10 Years) 1962 Annual Physical 1965 Hepatitis C 1980 DTaP, Tdap and Td Vaccines ( 1 - Tdap) 1981 Pneumococcal Vaccine: 50+ Ye ars (1 of 2 - PCV) 1981 Zoster Vaccines (1 of 2) 2012 RSV Immunization or 60+ Years (1 - Risk 60-74 years 1-dose series) 2022 COVID-19 Vaccine (1 - 2023-2 5 season) 2024 ASCVD LDL 12/27/2024 12/28/2023 Meningococcal B Vaccine Aged Out No l [...] upon discharge from hospital 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, 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 Procedure Name Priority Date/Time Associated Diagnosis Comments HC URINALYSIS AUTO W/O MICRO STAT 02/20/2025 1:14 PM CDT ECG 12-LEAD STAT 02/20/2025 12:52 PM CDT ELECTROCARDIOGRAM REPORT Routine 025 12:52 PM CDT MAGNESIUM STAT 02/20/2025 11:48 AM CDT TROPONIN, QUANT TIMED 02/20/2025 11:48 AM CDT XR CHEST PORTABLE STAT 02/20/2025 9:5 1 AM CDT CK (CPK) STAT 02/20/2025 9:37 AM CDT TROPONIN, QUANT STAT 02/20/2025 9:37 AM CDT COMPREHENSIVE METABOLIC PANEL STAT 02/20/2025 9:37 AM CDT CBC W/DIFF AUTOMATED STAT 02/20/2025 9:37 AM CDT ECG 12-LEAD Routine 02/20/2025 9:28 AM CDT LIPID PANEL Routine 12/28/2023 7:13 AM CDT from Last 3 Months or Most Recently Relevant to Health Maintenance Results * (ABNORMAL) URINALYSIS (02/20/2025 1:14 PM CDT) COLOR (U) LIGHT YELLOW 02/20/2025 2:07 PM CDT [facility] TRANSPARENCY CLEAR 02/20/2025 2:07 PM CDT [facility] SPECIFIC GRAVITY (U) 1.010 1.002 - 1.030 02/20/2025 2:07 PM CDT [facility] U PH 6.0 4.5 - 8.0 02/20/2025 2:07 PM CDT [facility] LEUKOCYTES (U) NEGATIVE NEGATIVE 02/20/2025 2:07 PM CDT [facility] NITRITES NEGATIVE NEGATIVE 02/20/2025 2:07 PM CDT [facility] PROTEIN RANDOM (U) 1+(A) NEGATIVE 02/20/2025 2:07 PM CDT [facility] GLUCOSE (U) NEGATIVE NEGATIVE 02/20/2025 2:07 PM CDT [facility] KETONES MG/DL (U) NEGATIVE NEGATIVE 02/20/2025 2:07 PM CDT [facility] UROBILINOGEN NORMAL NORMAL EU/DL 02/20/2025 2:07 PM CDT [facility] BILIRUBIN (U) NEGATIVE NEGATIVE 02/20/2025 2:07 PM CDT [facility] BLOOD (U) NEGATIVE NEGATIVE 02/20/2025 2:07 PM CDT [facility] WBC/HPF 0-5 /HPF 02/20/2025 2:07 PM CDT [facility] RBC/HPF 0-2 /HPF 02/20/2025 2:07 PM CDT [facility] EPI/HPF 5-10 /HPF 02/20/2025 2:07 PM CDT [facility] MUCUS TRACE 02/20/2025 2:07 PM CDT [facility] URINE SPECIMEN OBTAINED BY CLEAN CATCH PROCEDURE / Unknown 02/20/2025 1:14 PM CDT us Tanya Puente MD URINE ORDERABLES Final Resul t [facility] [address] [place] [address], [place] [phone] * ECG 12 lead (02/20/2025 12:52 PM CDT) Only the most recent of2 resultswithin the time period is included. 02/20/2025 12:5 2 PM CDT Narrative [facility] ([facility]) RAD - 02/23/2025 3:18 PM CDT [facility] Test Date: 2025-02-20 Pat Name: SHAMAR WATSON Department: 80 Room: EXAM 202 Gender: Male Cost Recorder: : 1960 Requested By: TANYA PUENTE Order Number: [id number] Reading MD: Stan Blount Measurements Intervals [place] Rate: 57 P: 39 MT: 187 QRS: -3 QRSD: 100 T: 42 QT: 440 QTc: 432 Interpretive Statements SINUS BRADYCARDIA Compared to ECG 02/20/2025 09:28:46 Myocardial infarct finding no longer present Procedure Note Stan Blount MD - 02/23/2025 [facility] Test Date: 2025-02-20 Pat Name: SHAMAR WATSON Department: 80 Room: EXAM 202 Gender: Male Cost Recorder: : 1960 Requested By: TANYA PUENTE Order Number: [id number] Reading MD: Stan Blount Measurements Intervals [place] Rate: 57 P: 39 MT: 187 QRS: -3 QRSD: 100 T: 42 QT: 440 QTc: 432 Interpretive Statements SINUS BRADYCARDIA Compared to ECG 02/20/2025 09:28:46 Myocardial infarct finding no longer present us Tanya Puente MD ECG ORDERABLES Final Result [facility] ([facility]) RAD * EKG Reading (02/20/2025 12:52 PM CDT) Tanya Sharma MD - 02/20/2025 12:52 PM CDT Tanya Puente MD 02/21/2025 11:31 PM EKG Reading Date/Time: 02/20/2025 12:52 PM Performed by: Tanya Puente MD Authorized by: Tanya Puente MD Interpreted by ED physician Rhythm: sinus bradycardia Rate: bradycardic QRS axis: normal Conduction: conduction normal ST Segments: ST segments normal T depression: aVR T flattening: aVL Clinical impression: non-specific ECG and dysrhythmia - atrial Comments: Rhythm strip ordered and reviewed :sinus charles without ectopy, vr=57 us Tanya Puente MD [place] CARDIOVASCULAR SYSTEM SER VICES Final Result * TROPONIN, QUANT (02/20/2025 11:48 AM CDT) Only the most recent of2 resultswithin the time period is included. TROPONIN I HIGH SENSITIVITY 11 0 - 79 ng/L 02/20/2025 12:17 PM CDT [facility] Comment: HIGH DOSES OF BIOTIN, TROPONIN-SPECIFIC AUTOANTIBODIES, AND ANTIBODY THERAPY CONTAINING HAMA MAY INTERFERE WITH THIS TEST RESULT. CORRELATION TO CLINICAL HISTORY AND PRESENTATION RECOMMENDED. 02/20/2025 11:4 8 AM CDT Tanya Puente MD LABORATORY Final Result [facility] [address] [place] [address], [place] [phone] * MAGNESIUM (02/20/2025 11:48 AM CDT) MAGNESIUM 2.1 1.8 - 2.4 MG/DL 02/20/2025 12:17 PM CDT [facility] 02/20/2025 11:4 8 AM CDT Tanya Puente MD LABORATORY Final Result Performing Organization Address City/[facility]/ZIP Co de Phone Number [facility] [address] [place] [address], [place] [phone] * XR CHEST PORTABLE (02/20/2025 9:51 AM CDT) Anatomical Region Laterality Modality Chest Radiographic Lola ging 02/20/2025 9:53 AM CDT Impressions 02/20/2025 9:53 AM CDT =====IMPRESSION:===== No acute findings. Ordered By: TANYA PUENTE Interpreted By: Fantasma Burnett, 02/20/2025 9:53 AM Narrative 02/20/2025 9:53 AM CDT [facility] [address] [place] [address] EXAMINATION: CHEST RADIOGRAPH SINGLE VIEW Exam date/time: 02/20/2025 9:51 AM Reason For Exam: Chest pain Weakness Comparison: 08/22/2024 Technique: AP view of the chest Findings: Heart size normal. Proximal airways unremarkable. No suspicious pulmonary lesion, pneumothorax, or pleural effusion. Procedure Note Fantasma Burnett MD - 02/20/2025 [facility] [address] [place] [address] EXAMINATION: CHEST RADIOGRAPH SINGLE VIEW Exam date/time: 02/20/2025 9:51 AM Reason For Exam: Chest pain Weakness Comparison: 08/22/2024 Technique: AP view of the chest Findings: Heart size normal. Proximal airways unremarkable. No suspiciouspulmonary lesion, pneumothorax, or pleural effusion. =====IMPRESSION:===== No acute findings. Ordered By: TANYA PUENTE Interpreted By: Fantasma Burnett, 02/20/2025 9:53 AM Tanya Puente MD GENERAL IMAGING Final Result * (ABNORMAL) COMPREHENSIVE METABOLIC PANEL (02/20/2025 9:37 AM CDT) GLUCOSE 76 70 - 99 MG/DL 02/20/2025 11:39 AM CDT [facility] BUN 25(H) 7 - 18 MG/DL 02/20/2025 11:39 AM CDT [facility] CREATININE S/P/B 1.30 0.7 - 1.3 MG/DL 02/20/2025 11:39 AM CDT [facility] SODIUM S/P/B 135(L) 136 - 145 MMOL/L 02/20/2025 11:39 AM CDT [facility] POTASSIUM S/P/B 2.9(LL) 3.5 - 5.1 MMOL/L 02/20/2025 11:39 AM [facility] Comment: CALLED RESULT CALLED TO GIUSEPPE @ 1130 02/20/2025 DP READ BACK AND VERIFIED CHLORIDE S/P/B 101 100 - 108 MMOL/L 02/20/2025 11:39 AM T [facility] CO2 23.4 21 - 32 MMOL/L 02/20/2025 11:39 AM [facility] CALCIUM S/P/B 8.2(L) 8.5 - 10.1 MG/DL 02/20/2025 11:39 AM [facility] BILIRUBIN TOTAL S/P/B 0.8 0.2 - 1.2 MG/DL 02/20/2025 11:39 AM [facility] Comment: THIS ASSAY IS NOT RECOMMENDED FOR PATIENTS UNDERGOING TREATMENT WITH ELTROMBOPAG DUE TO THE POTENTIAL FOR FALSELY ELEVATED RESULTS. TOTAL PROTEIN S/P/B 8.0 6.4 - 8.2 G/DL 02/20/2025 11:39 AM [facility] ALBUMIN S/P/B 3.7 3.4 - 5.0 G/DL 02/20/2025 11:39 AM [facility] AST 38(H) 15 - 37 U/L 02/20/2025 11:39 AM [facility] ALT 27 16 - 60 U/L 02/20/2025 11:39 AM [facility] ALKALINE PHOSPHATASE S/P/B 113 50 - 136 U/L 02/20/2025 11:39 AM [facility] ANION GAP 10.6 5 - 15 MMOL/L 02/20/2025 11:39 AM [facility] BUN CREATININE RATIO 19.2 6 - 26 02/20/2025 11:39 AM CDT [facility] A/G RATIO 0.9(L) 1.0 - 2.0 RATIO 02/20/2025 11:39 AM CDT [facility] GFR ESTIMATE 62(L) >90 ML/MIN/1.7 3 M2 02/20/2025 11:39 AM CDT [facility] Comment: NOTE: eGFR is not calculated for patients <18 years of age or gender unknown. This is an estimated GFR calculation using the new CKD EPI creatinine equation without race and so does not require a correction factor for race. This estimated GFR should not be used for calculating drug doses. 02/20/2025 9:37 AM CDT Tanya Puente MD LABORATORY Final Result [facility] [address] [place] [address], * (ABNORMAL) CBC W/DIFF AUTOMATED (02/20/2025 9:37 AM CDT) WBC 6.28 4.50 - 11.00 x10'3/uL 02/20/2025 10:47 AM CDT [facility] RBC 4.36(L) 4.70 - 6.10 x10'6/uL 02/20/2025 10:47 AM CDT [facility] HGB 14.1 14.0 - 18.0 G/DL 02/20/2025 10:47 AM CDT [facility] HCT 39.4(L) 43.0 - 54.0 % 02/20/2025 10:47 AM CDT [facility] MCV 90.4 80.0 - 94.0 FL 02/20/2025 10:47 AM CDT [facility] MCH 32.3(H) 27.0 - 31.0 PG 02/20/2025 10:47 AM CDT [facility] MCHC 35.8 32.0 - 36.0 G/DL 02/20/2025 10:47 AM CDT [facility] RDW 13.2 11.5 - 14.5 % 02/20/2025 10:47 AM CDT [facility] PLT 208 130 - 400 x10'3/uL 02/20/2025 10:47 AM CDT [facility] MPV 10.6 9.3 - 12.2 FL 02/20/2025 10:47 AM CDT [facility] CBC COMMENT AUTOMATED RBC MORPHOLOGY AND PLATELET EVALUATION NORMAL 02/20/2025 10:47 AM CDT [facility] NEUTROPHILS % 59.9 % 02/20/2025 10:47 AM CDT [facility] LYMPHOCYTES % 25.5 % 02/20/2025 10:47 AM CDT [facility] MONOCYTES % 11.0 % 02/20/2025 10:47 AM CDT [facility] EOSINOPHILS 2.9 % 02/20/2025 10:47 AM CDT [facility] BASOPHILS 0.5 % 02/20/2025 10:47 AM CDT [facility] IMMATURE GRANS % 0.2 % 02/21/20 10:47 AM CDT [facility] NRBC % 0.0 % 02/20/2025 10:47 AM CDT [facility] ABS. NEUTROPHILS TOTAL 3.77 1.80 - 7.70 x10'3/uL 02/20/2025 10:47 AM CDT [facility] ABS. LYMPHOCYTES 1.60 1.00 - 4.80 x10'3/uL 02/20/2025 10:47 AM CDT [facility] ABS. MONOCYTES 0.69 0.30 - 0.82 x10'3/uL 02/20/2025 10:47 AM CDT [facility] ABS. EOSINOPHILS 0.18 0.04 - 0.54 x10'3/uL 02/20/2025 10:47 AM CDT [facility] ABS. BASOPHILS 0.03 0.01 - 0.08 x10'3/uL 02/20/2025 10:47 AM CDT [facility] ABS. IMMATURE GRANULOCYTES 0.01 0.00 - 0.49 x10'3/uL 02/20/2025 10:47 AM CDT [facility] ABS. NUCLEATED RBC'S 0.00 0.00 - 0.01 x10'3/uL 02/20/2025 10:47 AM CDT [facility] 02/20/2025 9:37 AM CDT Tanya Puente MD LABORATORY Final Result [facility] [address] [place] [address], [place] [phone] * CK (CPK) (02/20/2025 9:37 AM CDT) CPK 188 39 - 308 U/L 02/20/2025 11:39 AM CDT [facility] 02/20/2025 9:37 AM CDT Tanya Puente MD LABORATORY Final Result [facility] [address] [place] [address], [place] [phone] * (ABNORMAL) LIPID PANEL (12/28/2023 7:13 AM CDT) CHOLESTEROL 97 <200 MG/DL 12/28/2023 9:58 AM CDT [facility] TRIGLYCERIDES 90 <150 MG/DL 12/28/2023 9:58 AM CDT [facility] HDL 30(L) >40.0 MG/DL 12/28/2023 9:58 AM CDT [facility] LDL (CALCULATED) 49 <100 MG/DL 12/28/19 9:58 AM CDT [facility] NON HDL CHOLESTEROL 67 <130 MG/DL 12/27 9:58 AM CDT [facility] CHOL/HDL RATIO 3.2 0.0 - 4.5 12/28/2023 9:58 AM CDT [facility] VLDL CALCULATION 18 5 - 55 MG/DL 12/28/2023 9:58 AM T [facility] LIPID INTERPRETATION 12/28/2023 9:58 AM T [facility] Comment: [facility] CONCENSUS REPORT RECOMMENDATIONS: ADULT CHILD LOW RISK: CHOLESTEROL <200 <170 TRIGLYCERIDE <150 --- HDL >=60 --- LDL <100 <110 BORDERLINE: CHOLESTEROL 200-239 170-199 TRIGLYCERIDE 150-199 --- HDL 40-59 --- LDL 100-159 110-129 HIGH RISK: CHOLESTEROL >=240 >=200 TRIGLYCERIDE >=200 --- HDL <40 --- LDL >=160 >=130 12/28/2023 7:13 AM CDT us Manuel Tavera MD LABORATORY Final Result [facility] [address] [place] [address], [place] [phone] from Last 3 Months or Most Recently Relevant to Health Maintenance Insurance [employer] Advance Directives * Full Code (Latest Code Status on File) Date Activated Date Inactivated Comments 12/27/2023 3:24 PM 12/29/2023 4:55 PM * Full Code Date Activated Date Inactivated Comments 12/27/2023 12:27 PM 12/27/2023 3:24 PM * Full Code Date Activated Date Inactivated Comments 12/27/2023 9:47 AM 12/27/2023 12:27 PM Care Teams Sewing 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
--- OUTSIDE RECORDS SUMMARY | 2025-03-02 14:39 | XMS_ITS | Referral Summary ---
Author Organization [facility] Address [address] [place] [address] Care Team Providers Care Social Work Professor Name Role Phone Bc Renae Primary Care Provider Encounters Date Type Department Care Team Description 01/09/2025 Telephone [facility] Cardiology [address] [facility] [address] [place] [address] Uzair Haider MD Med Refill from Last 3 Months Allergies Active Allergy Reactions Criticality Noted Date [...] Problem Noted Date Diagnosed Date Atherosclerosis of [place] co ronary artery of [place] heart without angina pectoris 09/11/2024 H/O right coronary artery stent placement 2024 Tobacco use 09/11/2024 Essential hypertension 09/11/2024 Cardiomyopathy, ischemic 09/11/2024 Mixed hyperlipidemia 09/11/2024 Paroxysmal atrial fibrillation 09/11/2024 Social History Tobacco Use Types Packs/Day Years [...] 36.6 C (97.8 F) 09/25/2024 3:05 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 Respiratory Rate 18 09/25/2024 6:35 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 Oxygen Saturation 98% 10/17/2024 8:31 AM CDT Inhaled Oxygen Concentration - - Weight 85.4 kg (188 lb 3.2 oz) 10/17/2024 8:31 A M CDT Height 170.2 cm (5' 7) 10/17/2024 8:31 AM CDT Body Mass Index 29.48 10/17/2024 8:31 AM CDT Plan of Treatment Not on file Insurance [facility] Advance Directives For more information, please contact: [phone] * Full Code (Latest Code Status on File) Date Activated Date Inactivated Comments 09/25/2024 3:17 PM 09/25/2024 11:30 PM Care Teams Social Work Professor Relationship Specialty Start Date End Date Bc Renae DO [address] [place] [address] PCP - General Family Medicine 09/11/24
[2025-03-02 15:14] LABS: Hemoglobin A1C 5.6 % (<5.7)
[2025-03-02 15:40] LABS: Alanine Aminotransferase 14 U/L (6-50); Albumin Level 4.3 g/dL (3.5-5.1); Alkaline Phosphatase 82 U/L (38-126); Anion Gap 10 mmol/L (4-12); Aspartate Amino Transferase 23 U/L (17-59); Bilirubin,Total 0.9 mg/dL (0.2-1.3); Blood Urea Nitrogen 19 mg/dL (9-20); Calcium 9.2 mg/dL (8.4-10.2); Carbon Dioxide 22 mmol/L (22-30); Chloride 107 mmol/L (98-107); Estimated Glomerular Filt Rate > 60; Glucose 119 mg/dL (65-110); Osmolality Calculated 291 mOsm/kg (285-295); Potassium 3.8 mmol/L (3.4-5.0); Sodium 139 mmol/L (137-145); Total Protein 7.5 g/dL (6.3-8.2)
== END 2025-03-02 14:29 | disposition home or self-care (01) ==
LOC: CHSLAB 14:29
PROVIDERS: PCP Family Medicine; Visit Provider Family Medicine
DX: R73.03 Prediabetes (principal)
CPT/HCPCS: 36415; 80053; 83036

== ENCOUNTER 2025-05-07 08:47 | Outpatient (CLI) | payer OTHER, SELFPAY ==
[2025-05-07 09:54] LABS: Alanine Aminotransferase 16 U/L (6-50); Albumin Level 4.1 g/dL (3.5-5.1); Alkaline Phosphatase 93 U/L (38-126); Aspartate Amino Transferase 31 U/L (17-59); Bilirubin,Total 0.7 mg/dL (0.2-1.3); Cholesterol 91 mg/dL (0-200); HDL Direct 26 mg/dL; Total Protein 8.0 g/dL (6.3-8.2); Triglycerides 79 mg/dL (<150)
== END 2025-05-07 08:48 | disposition home or self-care (01) ==
LOC: ANHLAB 08:49
PROVIDERS: PCP Family Medicine; Visit Provider Internal Medicine Cardiovascular Disease
DX: I25.10 Atherosclerotic heart disease of native coronary artery without angina pectoris (principal); I10 Essential (primary) hypertension; I48.0 Paroxysmal atrial fibrillation; E78.2 Mixed hyperlipidemia; Z72.0 Tobacco use
CPT/HCPCS: 36415; 80061; 80076